=== PATIENT | female | born 1995 | race Caucasian/White ===

== ENCOUNTER → 2017-12-27 | Outpatient (CLI) | payer BC, OTHER | LOC: M SMT 14:03 | DX: Z34.81 Encounter for supervision of other normal pregnancy, first trimester (principal); Z36.89 Encounter for other specified antenatal screening | CPT/HCPCS: 36415 ==

== ENCOUNTER → 2018-01-25 | Outpatient (REF) | payer OTHER | LOC: M LAB REF 13:17 | DX: Z34.82 Encounter for supervision of other normal pregnancy, second trimester (principal) ==

== ENCOUNTER → 2018-02-14 | Outpatient (CLI) | payer BC, OTHER | LOC: M RAD 10:20 | DX: Z34.82 Encounter for supervision of other normal pregnancy, second trimester (principal); Z36.89 Encounter for other specified antenatal screening; Z3A.19 19 weeks gestation of pregnancy | CPT/HCPCS: 76811 ==

== ENCOUNTER → 2018-02-21 | Outpatient (CLI) | payer BC, OTHER ==
[2018-02-21 14:19] LABS: FREE T4 0.81 NG/DL (0.76-1.46)
== END ==
LOC: M SMT 11:33
DX: Z36.89 Encounter for other specified antenatal screening (principal); Z3A.00 Weeks of gestation of pregnancy not specified
CPT/HCPCS: 84443

== ENCOUNTER → 2018-02-28 | Outpatient (CLI) | payer BC, OTHER | LOC: M RAD 13:03 | DX: Z36.9 Encounter for antenatal screening, unspecified (principal); Z3A.20 20 weeks gestation of pregnancy | CPT/HCPCS: 76816 ==

== ENCOUNTER 2018-03-17 16:19 | Outpatient (CLI) | payer BC, OTHER ==
[2018-03-17 16:53] LABS: AMORPHOUS SEDIMENT MODERATE (NEGATIVE); APPEARANCE, URINE HAZY (CLEAR); BACTERIA, URINE AUTO 1+ (NEGATIVE); BILIRUBIN, URINE AUTO NEGATIVE (NEGATIVE); BLOOD, URINE BLOOD NEGATIVE (NEGATIVE); COLOR, URINE YELLOW (YELLOW); GLUCOSE, URINE (UA) AUTO NEGATIVE (NEGATIVE); KETONE, URINE AUTO NEGATIVE (NEGATIVE); LEUKOCYTE ESTERASE, URINE AUTO NEGATIVE (NEGATIVE); MUCUS, URINE SMALL (NEGATIVE); NITRITE, URINE AUTO NEGATIVE (NEGATIVE); PROTEIN, URINE AUTO NEGATIVE (NEGATIVE); RBC, URINE AUTO 1 /HPF (0-3); SPECIFIC GRAVITY URINE AUTO 1.016 (1.002-1.035); SQUAMOUS EPITHELIAL CELL UR AU 1 /HPF (0-6); UROBILINOGEN, URINE AUTO 0.2 mg/dL (0.0-2.0); WBC, URINE AUTO 0 /HPF (0-3)
[2018-03-17] MEDS: FLUCONAZOLE 50MG TABLET PO (18:22)
[2018-03-17] MEDS: metroNIDAZOLE (FLAGYL) 500 MG TAB PO (18:23)
[2018-03-17] MEDS: NORCO, ANEXSIA 5/325MG TABLET (HYDROcodone/ACETAMINOPHEN) PO (18:23)
== END 2018-03-17 18:23 | disposition home or self-care (01) ==
LOC: M LDO 16:19
DX: O23.592 Infection of other part of genital tract in pregnancy, second trimester (principal); O26.832 Pregnancy related renal disease, second trimester; O26.892 Other specified pregnancy related conditions, second trimester; R10.30 Lower abdominal pain, unspecified; M54.5 Low back pain; Z3A.24 24 weeks gestation of pregnancy
CPT/HCPCS: 76775

== ENCOUNTER 2018-04-01 13:45 | Outpatient (CLI) | payer BC, OTHER ==
[2018-04-01 15:01] LABS: AMORPHOUS SEDIMENT SMALL (NEGATIVE); APPEARANCE, URINE CLOUDY (CLEAR); BACTERIA, URINE AUTO 1+ (NEGATIVE); BILIRUBIN, URINE AUTO NEGATIVE (NEGATIVE); BLOOD, URINE BLOOD 3+ (NEGATIVE); COLOR, URINE YELLOW (YELLOW); GLUCOSE, URINE (UA) AUTO NEGATIVE (NEGATIVE); KETONE, URINE AUTO NEGATIVE (NEGATIVE); LEUKOCYTE ESTERASE, URINE AUTO 1+ (NEGATIVE); MUCUS, URINE SMALL (NEGATIVE); NITRITE, URINE AUTO NEGATIVE (NEGATIVE); PROTEIN, URINE AUTO NEGATIVE (NEGATIVE); RBC, URINE AUTO TNTC /HPF (0-3); SPECIFIC GRAVITY URINE AUTO 1.018 (1.002-1.035); SQUAMOUS EPITHELIAL CELL UR AU 5 /HPF (0-6); UROBILINOGEN, URINE AUTO 0.2 mg/dL (0.0-2.0); WBC, URINE AUTO 9 /HPF (0-3)
[2018-04-01] MEDS: NORCO, ANEXSIA 5/325MG TABLET (HYDROcodone/ACETAMINOPHEN) PO ×2 (16:28→21:31)
[2018-04-01] MEDS: LACTATED RINGER'S 1000 ML IV (17:27)
[2018-04-01 18:43] LABS: ANION GAP 8 MEQ/L (8-16); BLOOD UREA NITROGEN 7 MG/DL (7-18); CALCIUM LEVEL 8.4 MG/DL (8.5-10.1); CARBON DIOXIDE LEVEL 25 MEQ/L (21-32); CHLORIDE LEVEL 109 MEQ/L (98-107); CREATININE FOR GFR 0.46 MG/DL (0.55-1.30); GLOMERULAR FILTRATION RATE > 60.0 (>60); GLUCOSE, FASTING 68 MG/DL (70-100); POTASSIUM SERUM 4.1 MEQ/L (3.5-5.1); SODIUM LEVEL 142 MEQ/L (136-145)
[2018-04-01 19:10] LABS: BASO % 0.3 % (0.0-1.0); EOS % 0.1 % (0.0-3.0); HEMATOCRIT 34.1 % (36.0-47.0); IMMATURE GRANULOCYTE % 0.2 % (0-3.0); LYMPH # 1.9 10^3/uL (1.5-6.5); LYMPH % 19.5 % (24.0-44.0); MEAN CORPUSCULAR HEMOGLOBIN 28.7 pg (27.0-33.0); MEAN CORPUSCULAR HGB CONC 32.3 g/dl (32.0-36.5); MONO # 0.6 10^3/uL (0.0-0.8); MONO % 6.7 % (0.0-5.0); NEUTROPHILS % 73.2 % (36.0-66.0); PLATELET COUNT, AUTOMATED 209 10^3/uL (150-450); RED BLOOD COUNT 3.83 10^6/uL (4.00-5.40); RED CELL DISTRIBUTION WIDTH 12.5 % (11.5-14.5); WHITE BLOOD COUNT 9.5 10^3/uL (4.0-10.0)
[2018-04-01] MEDS ORDERED: NORCO, ANEXSIA 5/325MG TABLET (HYDROcodone/ACETAMINOPHEN) PO (21:22)
[2018-04-01] MEDS: LR 1,000 ML IV (23:34)
[2018-04-02] MEDS: NORCO, ANEXSIA 5/325MG TABLET (HYDROcodone/ACETAMINOPHEN) PO ×2 (03:53→07:38)
[2018-04-02] MEDS: LR 1,000 ML IV (07:39)
[2018-04-02] MEDS ORDERED: ONDANSETRON 4 MG ORAL DISINTEGRATING TAB (Q0162 PER 1MG) PO (08:15)
[2018-04-02] MEDS: LEVOTHYROXINE 112MCG TABLET (0.112MG) PO (09:31)
== END 2018-04-02 11:45 | disposition home or self-care (01) ==
LOC: M LDO 13:45 → M OBS 20:55
DX: N20.0 Calculus of kidney (principal); Q79.6 Ehlers-Danlos syndromes; Q61.5 Medullary cystic kidney; J45.909 Unspecified asthma, uncomplicated; G90.9 Disorder of the autonomic nervous system, unspecified; Z90.49 Acquired absence of other specified parts of digestive tract; Z98.890 Other specified postprocedural states; Z79.890 Hormone replacement therapy; Z79.899 Other long term (current) drug therapy
CPT/HCPCS: 76775

== ENCOUNTER → 2018-04-05 | Outpatient (CLI) | payer BC, OTHER ==
[2018-04-05 13:36] LABS: HEMATOCRIT 31.2 % (36.0-47.0); MEAN CORPUSCULAR HEMOGLOBIN 28.6 pg (27.0-33.0); MEAN CORPUSCULAR HGB CONC 32.1 g/dl (32.0-36.5); MEAN CORPUSCULAR VOLUME 89.1 fl (80.0-96.0); PLATELET COUNT, AUTOMATED 193 10^3/uL (150-450); RED CELL DISTRIBUTION WIDTH 12.4 % (11.5-14.5); WHITE BLOOD COUNT 6.6 10^3/uL (4.0-10.0)
[2018-04-05 13:54] LABS: GLUCOSE CHALLENGE TEST 1 HOUR 157 MG/DL (LESS THAN 140)
== END ==
LOC: M LAB 11:39
DX: Z34.82 Encounter for supervision of other normal pregnancy, second trimester (principal); Z3A.00 Weeks of gestation of pregnancy not specified
CPT/HCPCS: 82950

== ENCOUNTER → 2018-04-05 | Outpatient (CLI) | payer BC, OTHER ==
[2018-04-05 14:07] LABS: FREE T4 0.84 NG/DL (0.76-1.46)
== END ==
LOC: M LAB 11:42
DX: E03.9 Hypothyroidism, unspecified (principal)
CPT/HCPCS: 84443

== ENCOUNTER 2018-04-10 03:02 | Inpatient (IN) | payer BC, OTHER ==
[2018-04-10] MEDS: LR 1,000 ML IV ×3 (04:18→19:53)
[2018-04-10] MEDS: LACTATED RINGER'S 1000 ML IV ×2 (04:30→11:05)
[2018-04-10 04:35] LABS: APPEARANCE, URINE HAZY (CLEAR); BACTERIA, URINE AUTO NEGATIVE (NEGATIVE); BILIRUBIN, URINE AUTO NEGATIVE (NEGATIVE); BLOOD, URINE BLOOD 1+ (NEGATIVE); COLOR, URINE YELLOW (YELLOW); GLUCOSE, URINE (UA) AUTO NEGATIVE (NEGATIVE); KETONE, URINE AUTO 1+ mg/dL (NEGATIVE); LEUKOCYTE ESTERASE, URINE AUTO NEGATIVE (NEGATIVE); MUCUS, URINE SMALL (NEGATIVE); NITRITE, URINE AUTO NEGATIVE (NEGATIVE); PROTEIN, URINE AUTO NEGATIVE (NEGATIVE); RBC, URINE AUTO 30 /HPF (0-3); SPECIFIC GRAVITY URINE AUTO 1.027 (1.002-1.035); SQUAMOUS EPITHELIAL CELL UR AU 6 /HPF (0-6); UROBILINOGEN, URINE AUTO 0.2 mg/dL (0.0-2.0); WBC, URINE AUTO 3 /HPF (0-3)
[2018-04-10] MEDS: ONDANSETRON 4 MG ORAL DISINTEGRATING TAB (Q0162 PER 1MG) SL (04:37)
[2018-04-10] MEDS: MORPHINE 4 MG/ML 1ML VIAL/SYRINGE (J2270) IV ×5 (04:38→21:52)
[2018-04-10 04:39] LABS: BASO % 0.2 % (0.0-1.0); EOS % 0.1 % (0.0-3.0); HEMATOCRIT 31.6 % (36.0-47.0); HEMOGLOBIN 10.5 g/dl (12.0-15.5); IMMATURE GRANULOCYTE % 0.6 % (0-3.0); LYMPH # 1.2 10^3/uL (1.5-6.5); LYMPH % 9.3 % (24.0-44.0); MEAN CORPUSCULAR HEMOGLOBIN 28.8 pg (27.0-33.0); MEAN CORPUSCULAR HGB CONC 33.2 g/dl (32.0-36.5); MEAN CORPUSCULAR VOLUME 86.6 fl (80.0-96.0); MONO # 0.6 10^3/uL (0.0-0.8); MONO % 4.9 % (0.0-5.0); NEUTROPHILS # 10.6 10^3/uL (1.8-7.7); NEUTROPHILS % 84.9 % (36.0-66.0); PLATELET COUNT, AUTOMATED 180 10^3/uL (150-450); RED BLOOD COUNT 3.65 10^6/uL (4.00-5.40); RED CELL DISTRIBUTION WIDTH 12.1 % (11.5-14.5); WHITE BLOOD COUNT 12.4 10^3/uL (4.0-10.0)
[2018-04-10] MEDS: PROMETHAZINE INJ 25 MG/ML VIAL (J2550) IV (09:32)
[2018-04-10] MEDS: MORPHINE 10 MG/ML 1ML VIAL (J2270) IV (09:32)
[2018-04-10] MEDS: TAMSULOSIN 0.4 MG CAP PO (11:07)
[2018-04-11] MEDS: MORPHINE 4 MG/ML 1ML VIAL/SYRINGE (J2270) IV ×5 (01:54→22:15)
[2018-04-11] MEDS: LR 1,000 ML IV ×3 (03:48→19:45)
[2018-04-11] MEDS: PERCOCET 5MG/325MG TAB PO ×4 (05:52→21:41)
[2018-04-11] MEDS: ONDANSETRON 4 MG ORAL DISINTEGRATING TAB (Q0162 PER 1MG) SL (07:45)
[2018-04-11] MEDS: TAMSULOSIN 0.4 MG CAP PO (08:28)
[2018-04-11] MEDS: DOCUSATE SODIUM 100 MG CAP PO ×2 (08:28→21:00)
[2018-04-11] MEDS: LEVOTHYROXINE 112MCG TABLET (0.112MG) PO (14:52)
[2018-04-11] MEDS: ESCITALOPRAM OXALATE 10 MG TAB (LEXAPRO) PO (14:52)
[2018-04-12] MEDS: PERCOCET 5MG/325MG TAB PO ×5 (01:59→20:17)
[2018-04-12] MEDS: LR 1,000 ML IV ×3 (03:28→20:17)
[2018-04-12] MEDS: MORPHINE 4 MG/ML 1ML VIAL/SYRINGE (J2270) IV ×4 (03:28→18:25)
[2018-04-12] MEDS: LEVOTHYROXINE 112MCG TABLET (0.112MG) PO (06:47)
[2018-04-12] MEDS: TAMSULOSIN 0.4 MG CAP PO (08:35)
[2018-04-12] MEDS: DOCUSATE SODIUM 100 MG CAP PO ×2 (08:35→20:16)
[2018-04-12] MEDS: ESCITALOPRAM OXALATE 10 MG TAB (LEXAPRO) PO (08:35)
[2018-04-12] MEDS: MOM 30ML SUSPENSION UDC PO (20:16)
[2018-04-13] MEDS: MORPHINE 4 MG/ML 1ML VIAL/SYRINGE (J2270) IV ×3 (00:35→16:10)
[2018-04-13] MEDS: LR 1,000 ML IV ×3 (03:16→19:20)
[2018-04-13] MEDS: PERCOCET 5MG/325MG TAB PO ×4 (03:17→22:03)
[2018-04-13] MEDS: LEVOTHYROXINE 112MCG TABLET (0.112MG) PO (05:42)
[2018-04-13] MEDS: DOCUSATE SODIUM 100 MG CAP PO ×2 (08:51→22:02)
[2018-04-13] MEDS: TAMSULOSIN 0.4 MG CAP PO (08:51)
[2018-04-13] MEDS: ESCITALOPRAM OXALATE 10 MG TAB (LEXAPRO) PO (08:52)
[2018-04-13] MEDS: ONDANSETRON 4 MG ORAL DISINTEGRATING TAB (Q0162 PER 1MG) SL (09:58)
[2018-04-13] MEDS: PROMETHAZINE INJ 25 MG/ML VIAL (J2550) IV (13:06)
[2018-04-14] MEDS: MORPHINE 4 MG/ML 1ML VIAL/SYRINGE (J2270) IV ×2 (00:56→05:20)
[2018-04-14] MEDS: LR 1,000 ML IV ×3 (03:14→20:02)
[2018-04-14] MEDS: LEVOTHYROXINE 112MCG TABLET (0.112MG) PO (06:00)
[2018-04-14] MEDS: ONDANSETRON 4 MG ORAL DISINTEGRATING TAB (Q0162 PER 1MG) SL (09:51)
[2018-04-14] MEDS: PERCOCET 5MG/325MG TAB PO ×2 (09:53→18:17)
[2018-04-14] MEDS: TAMSULOSIN 0.4 MG CAP PO (09:53)
[2018-04-14] MEDS: ESCITALOPRAM OXALATE 10 MG TAB (LEXAPRO) PO (09:53)
[2018-04-14] MEDS: DOCUSATE SODIUM 100 MG CAP PO ×2 (09:54→20:01)
[2018-04-14] MEDS: PROMETHAZINE INJ 25 MG/ML VIAL (J2550) IV (10:55)
[2018-04-15] MEDS: PERCOCET 5MG/325MG TAB PO ×7 (00:12→23:53)
[2018-04-15] MEDS: LR 1,000 ML IV ×3 (04:02→18:55)
[2018-04-15] MEDS: LEVOTHYROXINE 112MCG TABLET (0.112MG) PO (06:30)
[2018-04-15] MEDS: TAMSULOSIN 0.4 MG CAP PO (09:31)
[2018-04-15] MEDS: ESCITALOPRAM OXALATE 10 MG TAB (LEXAPRO) PO (09:31)
[2018-04-15] MEDS: DOCUSATE SODIUM 100 MG CAP PO ×2 (09:31→21:01)
[2018-04-15] MEDS: ONDANSETRON 4 MG ORAL DISINTEGRATING TAB (Q0162 PER 1MG) SL (11:38)
[2018-04-15] MEDS: PROMETHAZINE INJ 25 MG/ML VIAL (J2550) IV (13:36)
[2018-04-16] MEDS: LR 1,000 ML IV ×3 (03:15→19:29)
[2018-04-16] MEDS: LEVOTHYROXINE 112MCG TABLET (0.112MG) PO (06:20)
[2018-04-16] MEDS: PERCOCET 5MG/325MG TAB PO ×3 (08:06→19:30)
[2018-04-16] MEDS ORDERED: MORPHINE 4 MG/ML 1ML VIAL/SYRINGE (J2270) IV (08:45)
[2018-04-16] MEDS ORDERED: ONDANSETRON 4 MG ORAL DISINTEGRATING TAB (Q0162 PER 1MG) SL (08:45)
[2018-04-16] MEDS: DOCUSATE SODIUM 100 MG CAP PO ×2 (12:12→21:59)
[2018-04-16] MEDS: ESCITALOPRAM OXALATE 10 MG TAB (LEXAPRO) PO (12:12)
[2018-04-16] MEDS: TAMSULOSIN 0.4 MG CAP PO (12:12)
[2018-04-17] MEDS: PROMETHAZINE INJ 25 MG/ML VIAL (J2550) IV (00:35)
[2018-04-17] MEDS: PERCOCET 5MG/325MG TAB PO (00:36)
[2018-04-17] MEDS: LR 1,000 ML IV (04:45)
[2018-04-17] MEDS: LEVOTHYROXINE 112MCG TABLET (0.112MG) PO (05:54)
[2018-04-17] MEDS: TAMSULOSIN 0.4 MG CAP PO (08:27)
[2018-04-17] MEDS: ESCITALOPRAM OXALATE 10 MG TAB (LEXAPRO) PO (08:27)
[2018-04-17] MEDS: DOCUSATE SODIUM 100 MG CAP PO (08:27)
== END 2018-04-17 13:47 | disposition home or self-care (01) | DRG 566 ==
LOC: M LDO 03:02 → M PCU 04-14 03:54 → M LDO 04-14 03:55 → M OBS 11:24 → M PCU 04-14 03:55 → M OBS 04-14 03:54 → M LDO 04-15 12:48 → M PCU 04-15 12:48 → M OBS 04-12 16:40 → M LDO 04-15 13:15 → M PCU 04-14 03:54
DX: O99.89 Other specified diseases and conditions complicating pregnancy, childbirth and the puerperium (principal); N20.1 Calculus of ureter; Z3A.27 27 weeks gestation of pregnancy; O99.282 Endocrine, nutritional and metabolic diseases complicating pregnancy, second trimester; E03.9 Hypothyroidism, unspecified; O99.342 Other mental disorders complicating pregnancy, second trimester; F32.9 Major depressive disorder, single episode, unspecified; F41.9 Anxiety disorder, unspecified; O99.512 Diseases of the respiratory system complicating pregnancy, second trimester; J45.909 Unspecified asthma, uncomplicated

== ENCOUNTER → 2018-05-17 | Outpatient (REF) | payer OTHER ==
[~2018-05-17] MED LIST: COLA100C5 PO; FLOM0.4C39 PO; GRAN1TA PO; LEVO100T5 PO; LEXA1TAB2 PO; METR-201 PO; NEXI1CAP4 PO; NORC1TAB4 PO; PERCOCET PO; SYNT112T2 PO; VICO5TAB16 PO; ZOFR4TAB16 PO
== END ==
LOC: M LAB REF 13:08
PROVIDERS: ATTEND Advanced Practice Midwife
DX: Z34.83 Encounter for supervision of other normal pregnancy, third trimester (principal); Z3A.00 Weeks of gestation of pregnancy not specified

== ENCOUNTER 2018-05-30 12:46 | Outpatient (CLI) | payer BC, OTHER ==
[~2018-05-30] VITALS: Ht 152.4 cm; Wt 70.3 kg
[2018-05-30 13:00] VITALS: BP 110/63
[2018-05-30] MEDS ORDERED: GRAN1TA PO (13:19)
== END 2018-05-30 13:53 | disposition home or self-care (01) ==
LOC: M LDO 12:46
PROVIDERS: ATTEND Obstetrics & Gynecology
DX: O26.853 Spotting complicating pregnancy, third trimester (principal); Z3A.34 34 weeks gestation of pregnancy
CPT/HCPCS: 59025; G0378; G0463

== ENCOUNTER 2018-05-31 12:26 | Outpatient (CLI) | payer BC, OTHER ==
[~2018-05-31 12:26] MED LIST changes: -IBUP-1114 PO; -MAPA500T2 PO; -OXYC1TAB23 PO; -PEPC1TAB2 PO; -PRENTAB9 PO; -PROM50TA4 PO
[2018-05-31] MEDS ORDERED: BETAMETHASONE SOLUSPAN 6MG/ML INJ 5ML (J0702) IM ONE (13:45)
[2018-06-01] MEDS ORDERED: PEPC1TAB2 PO (14:36)
--- NOTE | 2018-06-01 15:32 | NUR ---
L&D Triage Note Note from 05/31/18 encounter 22yo at 34+5 weeks EGA. Elevated PTL/PTD risk since she was found to have slightly more advanced cervical dilation yesterday. Pt had apparently changed from 1cm to 3cm dilation. Pt had also complained of bloody mucoid discharge, but denies any large loss of fluid. Reports +FM. Pt states she recently noticed spotting. No steady leakage or large LOF. Pt states she is having uncomfortable contractions. VSS,normotensive, afebrile Abd: soft,nt,nd SVE: unchanged: 3/50%/-3, no blood or fluid EFM: Cat I/reactive [place]: irreg ctx A/P: 22yo at 34+5 weeks. No e/o PPROM or active PTL/further cervical dilation, but slightly advanced dilation for EGA. -Start rescue course of ACS ; pt had first course of ACS several weeks ago prior to 32 weeks. -Repeat SVE after >2 hours of observation; D/c if unchanged and repeat dose on 06/01 at [facility] to perform repeat SVE Andra Harrison DO
== END 2018-05-31 17:30 | disposition home or self-care (01) ==
LOC: M LDO 12:26
PROVIDERS: ATTEND Advanced Practice Midwife
DX: O47.03 False labor before 37 completed weeks of gestation, third trimester (principal); Z3A.35 35 weeks gestation of pregnancy
CPT/HCPCS: 59025; 96372; G0378; G0463; J0702

== ENCOUNTER → 2018-05-31 | Outpatient (REF) | payer OTHER ==
[~2018-05-31] MED LIST changes: +IBUP-1114 PO; +MAPA500T2 PO; +OXYC1TAB23 PO; +PEPC1TAB2 PO; +PRENTAB9 PO; +PROM50TA4 PO
--- NOTE | 2018-05-31 17:28 | IPNPDOC ---
Text Note Date of Service The patient was seen on 05/31/18. NOTE Reports irregular backache Cat I tracing SVE 2-/2, soft Pt discharged. Plans to stay in town overnight due to snow. Will return to hospital for Beta #2. After hours access, PTL, daily FKC, wanedens reivewed. Rhoda Harding CNM May 31, 2018 17:28
== END ==
LOC: M LAB REF 13:31
PROVIDERS: ATTEND Advanced Practice Midwife
DX: Z34.83 Encounter for supervision of other normal pregnancy, third trimester (principal); Z3A.00 Weeks of gestation of pregnancy not specified

== ENCOUNTER 2018-06-01 14:00 | Outpatient (CLI) | payer BC, OTHER ==
[~2018-06-01] VITALS: Ht 152.4 cm; Wt 71.8 kg
[2018-06-01 14:31] VITALS: BP 114/70
[2018-06-01] MEDS ORDERED: PEPC1TAB2 PO (14:36)
--- NOTE | 2018-06-01 15:03 | NUR ---
L&D Triage Note 22yo at 34+6 weeks EGA. Presents for second BMTZ dose; rescue course of ACS. Elevated PTL/PTD risk since she was found to have slightly more advanced cervical dilation yesterday. Pt had apparently changed from 1cm to 3cm dilation. Pt had also complained of bloody mucoid discharge, but denies any large loss of fluid. Reports +FM. Still complains intermittent/rare spotting overnight. No LOF. Intermittently having bouts of frequent contractions, but currently resting comfortably. VSS,normotensive, afebrile Abd: soft,nt,nd SVE: unchanged: 3/50%/-3; no blood or fluid noted. EFM: Cat I/reactive [place]: irreg / rare ctx A/P: 22yo at 34+6 weeks. No e/o PPROM or active PTL. Cervix, although slightly dilated at 3cm, remains unchanged since yesterday. -Repeat BMTZ dose -Routine PTL/PPROM, FKC, abruption, fever/infectious precautions reviewed -Follow up in office as scheduled. Andra Harrison DO
[2018-06-01] MEDS ORDERED: BETAMETHASONE SOLUSPAN 6MG/ML INJ 5ML (J0702) IM ONE (15:30)
== END 2018-06-01 15:30 | disposition home or self-care (01) ==
LOC: M LDO 14:00
PROVIDERS: ATTEND Obstetrics & Gynecology
DX: O47.03 False labor before 37 completed weeks of gestation, third trimester (principal); Z3A.34 34 weeks gestation of pregnancy
CPT/HCPCS: 59025; 96372; G0378; G0463; J0702

== ENCOUNTER 2018-06-04 10:22 | Inpatient (IN) | payer BC, OTHER ==
[~2018-06-04] VITALS: Ht 152.4 cm; Wt 71.9 kg
[2018-06-04] VITALS (9 sets, daily range): BP systolic 103–118; BP diastolic 52–78
[~2018-06-04 10:22] MED LIST changes: +PEPC1TAB2 PO
[2018-06-04] MEDS ORDERED: PROM50TA4 PO (10:42)
--- NOTE | 2018-06-04 15:04 | HPEPDOC ---
Obstetrical History & Physical General Date of Admission Jun 04, 2018 at 10:57 History of Present Illness CC: Labor HPI: Darlene Recinos is a 22 y.o. @ 35-2/7 weeks gestation by LMP on 09/30/17 with CHIQUI 07/07/18. Recently seen on 06/01/18 for bleeding and more regular contractions. SVE at the time showed: 2-3/75/-2, soft, anterior, no show. She was given a betamethasone injection for labor. She presents today complaining of rupture of membranes this AM and to receive her second dose of betamethasone. Uterine Contractions q (patient unsure) that last about 30 seconds since 0900. SROM? yes Movement? yes Bleeding/Discharge? small amount of spotting Care/Lab: Blood type: A+ Rh-, Ab- BPs: 106/52 Total weight gained:23 lbs GBS - Rubella: immune HIV - Pap: none recently documented GC/CT: -/- Hep BsAg - [place]: WNL VDRL/RPR: non-reactive Diabetes Screen:157 3 hour GTT: 87/140/116/99 OB U/S: 02/14/18 Anatomy US: SIUP. Placenta is anterior and grade 0 without previa or abruption. AFV is wnl. Cervix is 3.5 cm and closed. FHR 139 BPM. EFW 268g. 26th%. Limited eval on the heart/ventricular outflow tracts and spine. 02/28/18 F/U US: SIUP. FHR 128 BPM. EFW 389g. 26th%. Anatomical assessment is normal and complete. POB Hx: Year Gender Gest Delivery Weight Complications? 1. 06/2017 at 9-0/7wks miscarriage PMHx: Meds: prenatals? yes Hypothyroid Thelma-Danlos Syndrome, type 3 Medullary sponge kidney Postural orthostatic tachycardia Syndrome (POTS) Asthma Anxiety Depression Varicose veins PSHx: Appendectomy Surgical removal of kidney stones Allergies:Keflex, macrobid, nitrofurantoin, metoclopramide Social Hx: Has been with same partner for last 2 years, denies tobacco, etoh, or drug use. She lives in [place] Exam: Vitals: T 97.7 HR83 BP 106/52 Abdomen:gravid, non-tender SVE:Performed. Monitor: FHR 145 with moderate variability, no decels, Category I tracing. TOCO:No contractions currently. Past Medical History Allergies Coded Allergies: Bee Venom (Verified Allergy, Severe, 06/01/18) PT REPORTS ANAPHYLAXIS Cephalexin (Verified Allergy, Severe, anaphylaxis, 03/17/18) Metoclopramide (Verified Allergy, Severe, SEIZURE , 04/01/18) Nitrofurantoin (Verified Allergy, Severe, facial swelling, 03/17/18) Latex (Verified Allergy, Unknown, ANAPHYLAXIS, 06/04/18) PT REPORTS ANAPHYLAXIS Medications Scheduled Escitalopram Oxalate (Lexapro) 20 Mg Tab, 20 MG PO DAILY Esomeprazole (Nexium 24Hr) 20 Mg Cap, 1 CAP PO DAILY for acid reflux Famotidine (Pepcid) 40 Mg Tab, 1 TAB PO BID Granisetron HCl (Granisetron HCl) 1 Mg Tab, 1 TAB PO DAILY Levothyroxine Sodium (Synthroid) 112 Mcg Tab, 1 TAB PO DAILY Multivitamins/ ( 27-0.8 mg) 1 Tab Tab, 1 TAB PO DAILY Scheduled PRN Acetaminophen (Mapap) 500 Mg Tab, 1,000 MG PO Q6HP PRN for MILD PAIN (PS 1-4) Ibuprofen (Ibuprofen) 400 Mg Tab, 800 MG PO Q8HP PRN for MODERATE PAIN (PS 5-7) Physical Examination Physical Examination GENERAL: Alert and oriented times three. ABDOMEN: Gravid and non-tender to touch. FETUS: Is vertex (VTX) by sterile vaginal examination (SVE) HEART RATE: Regular rate and rhythm. LUNGS: Clear to auscultation (CTA). EXTREMITIES: No edema. No clonus. Assessment/Plan Assessment Darlene Recinos is a 22-year-old at 35-1/7 weeks with SROM and labor. Presents to Labor and Delivery (L&D). Plan Plan: -Admit patient to L&D for Labor. -Patient to receive 2nd dose of betamethasone. -Cord venous gas, type and screen, CBC, syphilis labs ordered. -Regular diet -Group B Streptococcus (GBS) negative. -Labs and intravenous (IV) per unit protocol. -FHR monitor and intrauterine monitor ordered. -Anticipate normal spontaneous delivery (). -C-S as appropriate. GME ATTESTATION GME ATTESTATION My faculty preceptor for this patient encounter was physically present during the encounter and was fully available. All aspects of the patient interview, examination, medical decision making process, and medical care plan development were reviewed and approved by the faculty preceptor. The faculty preceptor is aware and concurs with the plan as stated in the body of this note and will attest to such by his/her cosignature. SILVIA CABEZAS DO Jun 04, 2018 15:04
[2018-06-04 16:47] LABS: HEMATOCRIT 28.1 % (36.0-47.0); HEMOGLOBIN 8.9 g/dl (12.0-15.5); MEAN CORPUSCULAR HEMOGLOBIN 26.3 pg (27.0-33.0); MEAN CORPUSCULAR HGB CONC 31.7 g/dl (32.0-36.5); MEAN CORPUSCULAR VOLUME 82.9 fl (80.0-96.0); PLATELET COUNT, AUTOMATED 206 10^3/uL (150-450); RED BLOOD COUNT 3.39 10^6/uL (4.00-5.40); WHITE BLOOD COUNT 14.8 10^3/uL (4.0-10.0)
[2018-06-04] MEDS ORDERED: PROMETHAZINE INJ 25 MG/ML VIAL (J2550) IV PRN (17:30)
[2018-06-04] MEDS ORDERED: BUTORPHANOL 2 MG/ML INJ (J0595) IV ONE (17:30)
[2018-06-04] MEDS ORDERED: OXYTOCIN 30 UNITS IN 0.9% NaCl 500ML IV BAG (J2590) As Ordered ONE (18:58)
[2018-06-04] MEDS ORDERED: OXYTOCIN DRIP 30 UNITS in APPROPRIATE DILUENT 1 EA IV SCH (20:01)
[2018-06-04] MEDS ORDERED: MOM 30ML SUSPENSION UDC PO PRN (20:15)
[2018-06-04] MEDS ORDERED: DOCUSATE SODIUM 100 MG CAP PO PRN (20:15)
[2018-06-04] MEDS ORDERED: MEASLES,MUMPS,RUBELLA VACCINE INJ (MMR-II) (90707) SC SCH (20:15)
[2018-06-04] MEDS ORDERED: DIBUCAINE 1% OINTMENT 30GM TOP PRN (20:15)
[2018-06-04] MEDS ORDERED: METHYLERGONOVINE MALEATE 0.2 MG TAB PO PRN (20:15)
[2018-06-04] MEDS ORDERED: RHOGAM 300 MCG (1500 IU) INJ (J2790) IM SCH (20:15)
[2018-06-04] MEDS ORDERED: ANUSOL HC CREAM 30GM TOP PRN (20:15)
[2018-06-04] MEDS ORDERED: ONDANSETRON 4MG/2ML VIAL (J2405) IV PRN (20:15)
[2018-06-04] MEDS ORDERED: LIDOCAINE 1% MDV 20ML VIAL INFIL ONE (21:00)
--- NOTE | 2018-06-04 21:17 | DN ---
DATE OF PROCEDURE: 06/04/2018 TIME OF : 1919 hours GENDER: Female SCORES: 8 and 9. WEIGHT: 5 pounds 9 ounces, 2530 grams. LACERATION: Left labial. ESTIMATED BLOOD LOSS: 300 mL. COUNTS: Five laparotomy sponges accounted for prior to and after delivery. Three sharps removed from delivery field. ANESTHESIA: None. DELIVERY NOTE: On 06/04/2018 at 1919 hours, Ms. Recinos, a 22-year-old, 2, now para 1 had a delivery at 35 weeks of a liveborn female , scores of 8 and 9. Weight was 5 pounds 9 ounces or 2530 grams. Head was delivered occiput anterior (OA) over intact perineum, followed by delivery of shoulders and corpus. Infant was handed to mom with a good cry. Cord was clamped times two, was cut by support person under my direction. Cord blood was obtained. Placenta was then drained and delivered grossly intact. A premixed bag of 500 mL of normal saline was then bolused along with 30 units of Pitocin until the uterus was firm. On inspection, there was a left labial laceration, which was repaired with #3-0 Vicryl Rapide. On re-inspection, cervix, vagina, perineum was grossly intact and hemostatic. Mom and baby recovered in stable condition.
[2018-06-05] MEDS: ACETAMINOPHEN 500 MG TAB PO PRN ×2 (05:57→12:18)
[2018-06-05 06:03] VITALS: BP 109/60
[2018-06-05] MEDS: IBUPROFEN 800 MG TAB PO PRN ×2 (08:49→18:19)
[2018-06-05] MEDS: PRENATAL VITAMINS CHEWABLE TABLET PO SCH (08:49)
[2018-06-05 18:00] VITALS: BP 119/78
[2018-06-06] MEDS: IBUPROFEN 800 MG TAB PO PRN ×3 (04:13→21:35)
[2018-06-06 06:35] VITALS: BP 115/58
[2018-06-06] MEDS: PRENATAL VITAMINS CHEWABLE TABLET PO SCH (08:11)
[2018-06-06] MEDS: ACETAMINOPHEN 500 MG TAB PO PRN (08:12)
[2018-06-06] MEDS ORDERED: IBUP-1114 PO (08:27)
[2018-06-06] MEDS ORDERED: MAPA500T2 PO (08:27)
[2018-06-06] MEDS ORDERED: PRENTAB9 PO (08:27)
[2018-06-06 09:49] LABS: HEMATOCRIT 28.4 % (36.0-47.0); HEMOGLOBIN 9.1 g/dl (12.0-15.5); MEAN CORPUSCULAR HEMOGLOBIN 26.8 pg (27.0-33.0); MEAN CORPUSCULAR VOLUME 83.5 fl (80.0-96.0); PLATELET COUNT, AUTOMATED 197 10^3/uL (150-450); WHITE BLOOD COUNT 17.6 10^3/uL (4.0-10.0)
[2018-06-06 18:09] VITALS: BP 118/72
[2018-06-06] MEDS: PERCOCET 5MG/325MG TAB PO PRN (21:37)
[2018-06-07] MEDS ORDERED: OXYC1TAB23 PO ×2 (06:29→09:43)
[2018-06-07] MEDS: IBUPROFEN 800 MG TAB PO PRN (07:44)
[2018-06-07] MEDS: PRENATAL VITAMINS CHEWABLE TABLET PO SCH (07:44)
[2018-06-07] MEDS: PERCOCET 5MG/325MG TAB PO PRN (10:18)
== END 2018-06-07 13:26 | disposition home or self-care (01) | DRG 560 ==
LOC: M LDO 10:22 → M LDI 10:57 → M OBS 21:11
PROVIDERS: ADMIT Obstetrics & Gynecology; ATTEND Obstetrics & Gynecology
PROC: 10E0XZZ Delivery of Products of Conception, External Approach (ICD-10-PCS; principal; 2018-06-04)
PROC: 0HQ9XZZ Repair Perineum Skin, External Approach (ICD-10-PCS; 2018-06-04)
DX: O42.013 Preterm premature rupture of membranes, onset of labor within 24 hours of rupture, third trimester (principal); O70.0 First degree perineal laceration during delivery; Z3A.35 35 weeks gestation of pregnancy; Z37.0 Single live birth; O99.284 Endocrine, nutritional and metabolic diseases complicating childbirth; E03.9 Hypothyroidism, unspecified; O99.52 Diseases of the respiratory system complicating childbirth; J45.909 Unspecified asthma, uncomplicated

== ENCOUNTER 2018-06-09 12:03 | Inpatient (IN) | payer BC, OTHER ==
[~2018-06-09] VITALS: Ht 152.4 cm; Wt 68.0 kg
[~2018-06-09 12:03] MED LIST changes: +IBUP-1114 PO; +MAPA500T2 PO; +OXYC1TAB23 PO; +PRENTAB9 PO; +PROM50TA4 PO
[2018-06-09] MEDS ORDERED: DILUENT IV ONE (12:30)
[2018-06-09] MEDS ORDERED: NS IV ONE (12:30)
[2018-06-09 12:40] LABS: VENOUS BASE EXCESS -2.9 (-2.0-2.0); VENOUS HCO3 20.2 MEQ/L (23.0-27.0); VENOUS O2 SATURATION 95.4 % (60.0-80.0); VENOUS PARTIAL PRESSURE CO2 29.3 mmHg (38.0-50.0); VENOUS PARTIAL PRESSURE O2 76.4 mmHg (30.0-50.0); VENOUS PH 7.456 UNITS (7.330-7.430); VENOUS TOTAL CO2 21.1 MEQ/L (24.0-28.0)
[2018-06-09 12:53] LABS: BASO % 0.2 % (0.0-1.0); EOS % 0.3 % (0.0-3.0); HEMATOCRIT 31.1 % (36.0-47.0); HEMOGLOBIN 9.7 g/dl (12.0-15.5); LYMPH # 0.5 10^3/uL (1.5-6.5); LYMPH % 5.8 % (24.0-44.0); MEAN CORPUSCULAR HEMOGLOBIN 26.1 pg (27.0-33.0); MEAN CORPUSCULAR HGB CONC 31.2 g/dl (32.0-36.5); MEAN CORPUSCULAR VOLUME 83.6 fl (80.0-96.0); MONO # 0.2 10^3/uL (0.0-0.8); MONO % 1.8 % (0.0-5.0); NEUTROPHILS # 8.4 10^3/uL (1.8-7.7); NEUTROPHILS % 90.8 % (36.0-66.0); PLATELET COUNT, AUTOMATED 175 10^3/uL (150-450); RED BLOOD COUNT 3.72 10^6/uL (4.00-5.40); WHITE BLOOD COUNT 9.3 10^3/uL (4.0-10.0)
[2018-06-09 12:54] LABS: ALBUMIN 2.5 GM/DL (3.2-5.2); ALT/SGPT 20 U/L (12-78); BILIRUBIN,DIRECT 0.1 MG/DL (0.0-0.2); BILIRUBIN,TOTAL 0.3 MG/DL (0.2-1.0); BLOOD UREA NITROGEN 10 MG/DL (7-18); CALCIUM LEVEL 7.9 MG/DL (8.5-10.1); CARBON DIOXIDE LEVEL 22 MEQ/L (21-32); CHLORIDE LEVEL 104 MEQ/L (98-107); CREATININE FOR GFR 0.59 MG/DL (0.55-1.30); GLOMERULAR FILTRATION RATE > 60.0 (>60); GLUCOSE, FASTING 85 MG/DL (70-100); POTASSIUM SERUM 3.7 MEQ/L (3.5-5.1); SODIUM LEVEL 136 MEQ/L (136-145); TOTAL PROTEIN 5.9 GM/DL (6.4-8.2)
[2018-06-09 13:25] LABS: INFLUENZA A AMPLIFICATION NEGATIVE (NEGATIVE); INFLUENZA B AMPLIFICATION NEGATIVE (NEGATIVE)
[2018-06-09] MEDS ORDERED: ACETAMINOPHEN 325 MG TAB PO ONE (13:30)
[2018-06-09] MEDS ORDERED: IMIPENEM/CILASTATIN 500 MG in D5W MINI-BAG PLUS 100 ML IV ONE (14:15)
--- NOTE | 2018-06-09 14:38 | REP ---
Clinical: pelvic pain . Technique: Transabdominal pelvic ultrasound followed by transvaginal examination for better evaluation of the endometrium and adnexa with color Doppler evaluation of the ovaries. Findings: Bladder is unremarkable and measures 11.7 x 13.6 x 7.6 cm . Heterogeneous enlarged uterus measures 16.0 x 6.5 x 10.8 cm. Endometrial complex measures 22 mm thickness and retained products of conception cannot definitively be excluded. Bilateral ovaries are normal in appearance and vascularity without evidence for torsion. Right ovary measures 2.8 x 2.0 x 2.4 cm ; R I = 0.46 . Left ovary measures 3.0 x 2.0 x 2.5 cm ; R I = 0.54 . No pelvic fluid or adnexal mass lesion. Impression: 1. Relatively normal appearance to the uterus. Thickened endometrium cannot exclude retained products of conception. 2. Normal bilateral ovaries without torsion. Electronically Signed by Abdullahi Herr MD 06/09/2018 02:29 P
[2018-06-09 14:51] LABS: APPEARANCE, URINE CLEAR (CLEAR); BACTERIA, URINE AUTO 1+ (NEGATIVE); BILIRUBIN, URINE AUTO NEGATIVE (NEGATIVE); BLOOD, URINE BLOOD 2+ (NEGATIVE); COLOR, URINE STRAW (YELLOW); GLUCOSE, URINE (UA) AUTO NEGATIVE (NEGATIVE); KETONE, URINE AUTO NEGATIVE (NEGATIVE); LEUKOCYTE ESTERASE, URINE AUTO 1+ (NEGATIVE); NITRITE, URINE AUTO NEGATIVE (NEGATIVE); PROTEIN, URINE AUTO NEGATIVE (NEGATIVE); RBC, URINE AUTO 1 /HPF (0-3); SPECIFIC GRAVITY URINE AUTO 1.004 (1.002-1.035); SQUAMOUS EPITHELIAL CELL UR AU 0 /HPF (0-6); UROBILINOGEN, URINE AUTO 0.2 mg/dL (0.0-2.0); WBC, URINE AUTO 16 /HPF (0-3)
[2018-06-09] MEDS ORDERED: NS 1,000 ML IV ONE (15:30)
[2018-06-09] MEDS ORDERED: IBUPROFEN 800 MG TAB PO ONE (15:30)
[2018-06-09] MEDS ORDERED: OXYC1TAB23 PO (16:17)
[2018-06-09] MEDS ORDERED: ONDANSETRON 4MG/2ML VIAL (J2405) IV PRN (16:30)
[2018-06-09] MEDS ORDERED: ACETAMINOPHEN 500 MG TAB PO PRN (16:30)
[2018-06-09] MEDS ORDERED: DIBUCAINE 1% OINTMENT 30GM TOP PRN (16:30)
[2018-06-09] MEDS ORDERED: NS 500 ML IV ONE (17:00)
[2018-06-09] MEDS: LR 1,000 ML IV SCH (17:46)
--- NOTE | 2018-06-09 18:22 | REPVR ---
EXAM: US Retroperitoneal Limited, Kidneys EXAM DATE/TIME: 06/09/2018 5:27 PM CLINICAL HISTORY: 22 years old, female; Pain; Abdominal pain; Acute; Additional info: Pyleonephristis TECHNIQUE: Real-time ultrasound of the retroperitoneum with image documentation. Examination was focused on the kidneys. COMPARISON: RENAL US 04/12/2018 7:48 AM FINDINGS: Kidneys: The right kidney measures 11.1 CM in length by 5.3 CM in thickness. There is moderate hydronephrosis of the right collecting system. This could be secondary to reflux or partial obstruction on the right. Correlation with a CT scan with contrast should be considered. There is a 1 CM round stone in the upper pole the right kidney. Normal appearing urinary bladder. There are 3 calcified stones left kidney ranging in size from 5 mm to 7 mm. There is no evidence of significant hydronephrosis on the left. The left kidney measures 11.1 CM in length by 6 mm in thickness. There is evidence of a jet of urine right and left urinary bladder base. IMPRESSION: 1. Calcified stones right and left kidney which are nonobstructive. 2. There is moderate hydronephrosis of the right collecting system and dilatation of the right ureter. Considerations would include reflux versus partial obstruction. Recommend correlation with CT scan with contrast for further evaluation. Electronically signed by: Eren Grove On 06/09/2018 18:21:47 PM
[2018-06-09] MEDS ORDERED: MEROPENEM INJ 1 GM in APPROPRIATE DILUENT 1 EA IV SCH (18:30)
[2018-06-09] MEDS: DOCUSATE SODIUM 100 MG CAP PO SCH (20:48)
[2018-06-09 20:49] VITALS: BP 120/71
[2018-06-09] MEDS: IMIPENEM/CILASTATIN 500 MG in D5W MINI-BAG PLUS 100 ML IV SCH (21:38)
[2018-06-09 23:59] VITALS: BP 117/74
[2018-06-10] MEDS: LR 1,000 ML IV SCH (01:06)
[2018-06-10] MEDS: PERCOCET 5MG/325MG TAB PO PRN ×3 (02:21→13:24)
[2018-06-10] MEDS: IMIPENEM/CILASTATIN 500 MG in D5W MINI-BAG PLUS 100 ML IV SCH ×4 (02:26→20:13)
[2018-06-10 04:00] VITALS: BP 119/66
[2018-06-10] MEDS: LEVOTHYROXINE 112MCG TABLET (0.112MG) PO SCH (05:54)
--- NOTE | 2018-06-10 06:53 | HPE ---
DATE OF ADMISSION: 06/09/2018 REASON FOR ADMISSION: Pyelonephritis. HISTORY OF PRESENT ILLNESS: This patient is a 22-year-old, 2, para 1 who presents six days post with fever. She reports feeling well up until this morning where she woke up with shaking chills, malaise, body aches. She took her temperature and she reports temperature was 103. She took ibuprofen and Tylenol and presented to the emergency room. She denies any abdominal tenderness, any significant flank pain, upper respiratory infection symptoms, abdominal pain, abnormal discharge or bleeding. She is currently breast feeding, also reports no breast tenderness. PAST MEDICAL HISTORY: 1. Hypothyroidism. 2. Thelma-Danlos syndrome type 3. 3. Medullary sponge kidney. 4. Asthma. 5. Anxiety and depression. PAST OBSTETRICAL HISTORY: 2, para 1. She had a delivery on June 04, 2018. She presented as a premature rupture of membranes in active labor. Her labor and course was less than 12 hours. Otherwise her delivery was uncomplicated. She sustained a labile laceration. PAST SURGICAL HISTORY: Appendectomy. MEDICATIONS: - vitamins - ibuprofen and Tylenol ALLERGIES: KEFLEX, MACROBID, REGLAN. SOCIAL HISTORY: She denies any alcohol, tobacco or drug use. PHYSICAL EXAMINATION: CURRENT VITAL SIGNS: Blood pressure 101/55, she is febrile with a temperature of 101.5, pulse 138, she is sats at 99%. GENERAL APPEARANCE: Well appearing. She does not appear to be in acute distress. LUNGS: Clear to auscultation bilaterally. CARDIOVASCULAR: Tachycardic. BREAST: normal appearing, nonedematous and nonerythemic ABDOMEN: Nontender, soft. Fundus was nontender. Positive costovertebral angle (CVA) tenderness, worse on the right than on the left. Negative rebound tenderness on her abdominal exam. PELVIC EXAM: Sutures in place in the left labia. Normal appearing lochia. No foul odor or discharge. Digital exam, no hematoma, abscess or tenderness appreciated. EXTREMITIES: Negative for calf tenderness. LABORATORY DATA: White count 5.3, hemoglobin 9.7, hematocrit 31.1, platelets 175,000. Her urine showed +2 blood, +1 leukocyte esterase, 16 white blood cells, +1 bacteria. ASSESSMENT AND PLAN: Ms. Recinos a 22-year-old, 2, para 1 who is five days post for delivery currently with fever. Differential diagnosis includes pyelonephritis, less likely endomyometritis. The plan is to: 1. Admit, repeat CBC, await urine culture. 2. Will start on Imipenem 500 mg every 6 hours, ibuprofen and Tylenol for fever and will tailor antibiotics based on the urine culture. MTDD
[2018-06-10 07:57] LABS: BASO % 0.1 % (0.0-1.0); EOS % 0.1 % (0.0-3.0); HEMATOCRIT 26.1 % (36.0-47.0); HEMOGLOBIN 8.3 g/dl (12.0-15.5); LYMPH # 0.8 10^3/uL (1.5-6.5); LYMPH % 10.8 % (24.0-44.0); MEAN CORPUSCULAR HEMOGLOBIN 26.2 pg (27.0-33.0); MEAN CORPUSCULAR HGB CONC 31.8 g/dl (32.0-36.5); MEAN CORPUSCULAR VOLUME 82.3 fl (80.0-96.0); MONO # 0.5 10^3/uL (0.0-0.8); MONO % 6.4 % (0.0-5.0); NEUTROPHILS # 5.7 10^3/uL (1.8-7.7); NEUTROPHILS % 81.5 % (36.0-66.0); PLATELET COUNT, AUTOMATED 126 10^3/uL (150-450); RED BLOOD COUNT 3.17 10^6/uL (4.00-5.40)
[2018-06-10 08:00] VITALS: BP 135/85
[2018-06-10] MEDS: PRENATAL VITAMINS CHEWABLE TABLET PO SCH (08:02)
[2018-06-10] MEDS: ESCITALOPRAM OXALATE 10 MG TAB (LEXAPRO) PO SCH (08:02)
[2018-06-10] MEDS: DOCUSATE SODIUM 100 MG CAP PO SCH ×2 (08:03→20:09)
--- NOTE | 2018-06-10 08:17 | CR ---
DATE OF CONSULTATION: 06/09/2018 This is a 22-year-old female day 5 and past medical history of hyperthyroidism, medullary sponge disease, and Thelma-Danlos Syndrome presents to the emergency room with severe aches and chills that started in the middle of the night this morning around 3. In the emergency room (ER) she was found to be tachycardic and with a fever of 101 which went up to 103, Tylenol was given and patient was started on IV fluids and sepsis protocol was initiated. Patient was given IV Primaxin. Dr. Gore was the OB-IGNITION EXPERT physician who admitted the patient the patient and our reason for our medical consultation for management of sepsis. Patient at this time denies any abdominal pain, nausea, vomiting, chest pain, shortness of breath, vertigo, headache. No diarrhea. She will be admitted for further management. PAST MEDICAL HISTORY: Again past medical history of Thelma-Danlos Syndrome, medullary sponge disease, hypothyroidism. ALLERGIES: CEPHALEXIN, METOCLOPRAMIDE, and NITROFURANTOIN. FAMILY HISTORY: Noncontributory. SOCIAL HISTORY: Patient denies tobacco, alcohol or illicit drugs. MEDICATIONS AT HOME: - escitalopram 20 mg orally daily - ibuprofen 800 mg orally every 8 hours as needed - Synthroid 112 mcg orally daily - multivitamin one tab orally daily - Oxycodone APAP 5/325 one to two tabs orally every 4-6 hours as needed REVIEW OF SYSTEMS: Negative of all ten major systems except what was mentioned in the history of present illness. PHYSICAL EXAMINATION: VITALS: Blood pressure 107/62, heart rate is 104 and regular, respiratory rate 17, temperature 98.5, oxygen saturation 96% on room air. HEAD: Atraumatic, normocephalic. NECK: Supple. No jugular venous distention (JVD). LUNGS: Clear to auscultation. S1, S2, audible. No murmurs appreciated. ABDOMEN: Soft, positive bowel sounds. EXTREMITIES: No pedal edema. SKIN: Intact. NEUROLOGIC EXAMINATION: Patient awake, alert, and oriented times three. LABS: WBC is 9.3, hemoglobin 9.7, hematocrit 31.1, platelets are 175,000. Sodium 136, potassium 3.7, chloride 104, CO2 22, BUN 10, creatinine 0.59, glucose 85, lactic acid 2.1. Urinalysis is positive for urinary tract infection (UTI). Influenza screen is negative. IMPRESSION: 1. Sepsis. 2. Urinary tract infection (UTI). PLAN: At this time we will start IV meropenem 1 gram IV every 8. We will follow pena cultures and continue IV fluids. Recommend continuing all her preadmission medications. We will continue following her along side OB-IGNITION EXPERT.
[2018-06-10 08:41] LABS: ALBUMIN 2.1 GM/DL (3.2-5.2); ALT/SGPT 29 U/L (12-78); BILIRUBIN,TOTAL 0.5 MG/DL (0.2-1.0); BLOOD UREA NITROGEN 6 MG/DL (7-18); CALCIUM LEVEL 8.1 MG/DL (8.5-10.1); CARBON DIOXIDE LEVEL 22 MEQ/L (21-32); CHLORIDE LEVEL 107 MEQ/L (98-107); CREATININE FOR GFR 0.39 MG/DL (0.55-1.30); GLOMERULAR FILTRATION RATE > 60.0 (>60); GLUCOSE, FASTING 73 MG/DL (70-100); MAGNESIUM LEVEL 1.7 MG/DL (1.8-2.4); POTASSIUM SERUM 4.1 MEQ/L (3.5-5.1); SODIUM LEVEL 138 MEQ/L (136-145); TOTAL PROTEIN 5.2 GM/DL (6.4-8.2)
[2018-06-10] MEDS ORDERED: ISOVUE-370 76% 100ML VIAL (Q9967) As Ordered ONE (10:21)
--- NOTE | 2018-06-10 10:22 | NUR ---
HD#2 S: Darlene doing well this morning. She had increasing flank pain and suprapubic pain. Has remained afebrile overnight. O: vs 135/85, 97, 99.4 Gen well appearing abd: tenderness along suprapubic cbc 7>-8.3/26.1-<126 renal u/s showing : several stone with moderate right hydronephrosis A/P: 1. 22yo with pyelonephrosis - currently stable 2. Nephrolithiasis - plan for CT - will consider Urology consult pending results Alida Gore MD
--- NOTE | 2018-06-10 11:24 | REP ---
CT abdomen and pelvis with IV but without oral contrast: History: Hydronephrosis 5 days . Pyelonephritis. Comparison sonography is from June 09, 2018. CT contrast dose: 100 mL of intravenous Isovue 370. CT findings: Preliminary digital refiner operator radiograph shows an unremarkable bowel gas pattern. The liver and the spleen are normal in size and homogeneous in texture. No gallbladder abnormalities observed. Adrenals are normal bilaterally. No pancreatic abnormality is seen. There is no evidence of ascites. uterine enlargement is observed. There are surgical clips in the right lower quadrant post appendectomy. No abnormalities seen in the gastrointestinal tract. There are bilateral intrarenal calculi. The largest of the intrarenal stones in the upper pole of the right kidney collecting system. This measures 6 mm. There is a 3 mm calculus in the mid kidney on the right and a 4 mm calculus is seen at mid kidney on the left. There is a minimal right-sided hydronephrosis. There is no evidence of ureteral calculus. No bladder calculus is observed. Delayed scan images show the ureter is slightly full on the right to the level of the vascular crossing just above the enlarged uterus. No filling defect is seen in the collecting system on either side. No evidence of asymmetrical or otherwise abnormal contrast enhancement in the kidneys to suggest pyelonephritis by CT criteria. No perinephric or intrarenal fluid collection is seen. Impression: uterine enlargement. Mild right-sided hydronephrosis. No ureteral calculus seen. There are bilateral intrarenal nonobstructive kidney stones. Post appendectomy. Otherwise negative. Electronically Signed by Alfie Calles MD 06/10/2018 01:54 P
[2018-06-10] MEDS ORDERED: SLF 3 ML SYR IV PRN (11:30)
[2018-06-10 12:00] VITALS: BP 120/58
[2018-06-10] MEDS: IBUPROFEN 800 MG TAB PO SCH ×2 (14:59→23:49)
[2018-06-10] MEDS: SLF 3 ML SYR IV SCH ×2 (15:01→21:34)
[2018-06-10 16:00] VITALS: BP 115/62
--- NOTE | 2018-06-10 16:31 | IPNPDOC ---
Text Note Date of Service The patient was seen on 06/10/18. NOTE Subjective: Patient is a 22-year-old female , with PMHx of Thelma-Danlos Syndrome (Type 3), Asthma, Hypothyroidism, Medullary sponge disease, Anxiety / Depression who presented to the ER with complaints of fever, chills and rigors. Patient had given 6 days prior to arrival . In the emergency room, patient was suspected to have a urinary tract infection and was admitted to BUSINESS ADMINISTRATOR for post- fever. Hospital service was called for consultation for suspected sepsis. Patient was seen and examined at the bedside. Patient complains of suprapubic pain, pain in both of her kidneys notes that this morning she is experiencing blood in her urine. Denies any chest pain, shortness breath, palpitations. Denies nausea and vomiting. Objective: Vitals (See below) General: Lying in bed, no acute distress, comfortable, AAOx3 HEENT: NC, AT CVS: RRR, +S1S2 Lungs: Fair air entry b/l, -w/r/r Abdomen: Soft, ND, Suprapubic tenderness, Bilateral CVA tenderness Extremities: - Edema, - Calf tenderness Assessment and plan: Sepsis - likely 2/2 pyelonephritis - Patient has a history of several urinary tract infections during her for which she is using 3 different times of antibiotics - Presented to the ER with complaints of fevers, chills and rigors, - In the emergency room, patient was found to be hypotensive; has responded to IV fluid hydration - Physical with suprapubic tenderness and bilateral CVA tenderness - No significant leukocytosis; mild elevation of lactic acid - CT abdomen / pelvis 2/: uterine enlargement. Mild right-sided hydronephrosis. No ureteral calculus seen. There are bilateral intrarenal nonobstructive kidney stones. Post appendectomy. Otherwise negative. - US renal 2/4: 1. Calcified stones right and left kidney which are nonobstructive. 2. There is moderate hydronephrosis of the right collecting system and dilatation of the right ureter. Considerations would include reflux versus partial obstruction. Recommend correlation with CT scan with contrast for further evaluation. - Pelvic US 2/4: 1. Relatively normal appearance to the uterus. Thickened endometrium cannot exclude retained products of conception. 2. Normal bilateral ovaries without torsion. - c/w Imipenem (Day #2) Thelma-Danlos Syndrome (Type 3) Asthma - No evidence of exacerbation - c/w inhaled therapy as ordered Hypothyroidism - c/w Levothyroxine Medullary sponge disease Anxiety / Depression - c/w Escitalopram DVT prophylaxis - c/w compression stockings VS,Fishbone, I+O VS, Fishbone, I+O Laboratory Tests 06/10/18 07:50 Red Blood Count 3.17 L, Mean Corpuscular Volume 82.3, Mean Corpuscular He moglobin 26.2 L, Mean Corpuscular Hemoglobin Concent 31.8 L, Red Cell Distribution Width 13.2, Neutrophils (%) (Auto) 81.5 H, Lymphocytes (%) (Auto) 10.8 L, Monocytes (%) (Auto) 6.4 H, Eosinophils (%) (Auto) 0.1, Basophils (%) (Auto) 0.1, Neutrophils # (Auto) 5.7, Lymphocytes # (Auto) 0.8 L, Monocytes # (Auto) 0.5, Eosinophils # (Auto) 0.0, Basophils # (Auto) 0.0, Calcium Level 8.1 L, Aspartate Amino Transf (AST/SGOT) 43 H, Alanine Aminotransferase (ALT/SGPT) 29, Alkaline Phosphatase 98, Total Bilirubin 0.5 #, Total Protein 5.2 L, Albumin 2.1 L Vital Signs Date Time Temp Pulse Resp B/P (MAP) Pulse Ox O2 Delivery O2 Flow Rate FiO2 06/10/18 13:54 20 06/10/18 12:00 97.0 109 120/58 (78) 97 06/09/18 12:04 Room Air I&O- Last 24 Hours up to 6 AM 06/10/18 06:00 Intake Total 5131 ml Output Total 2400 ml Balance 2731 ml LAKHWINDER HAMILTON MD Jun 10, 2018 16:31
[2018-06-10 20:00] VITALS: BP 118/55
[2018-06-10 23:59] VITALS: BP 120/71
[2018-06-11] MEDS: IMIPENEM/CILASTATIN 500 MG in D5W MINI-BAG PLUS 100 ML IV SCH ×4 (02:12→19:30)
[2018-06-11 04:00] VITALS: BP 138/65
[2018-06-11] MEDS: IBUPROFEN 800 MG TAB PO SCH ×3 (05:34→23:45)
[2018-06-11] MEDS: LEVOTHYROXINE 112MCG TABLET (0.112MG) PO SCH (05:34)
[2018-06-11] MEDS: SLF 3 ML SYR IV SCH ×3 (05:35→23:45)
[2018-06-11 05:54] LABS: BASO % 0.2 % (0.0-1.0); EOS % 0.7 % (0.0-3.0); HEMATOCRIT 27.5 % (36.0-47.0); HEMOGLOBIN 8.7 g/dl (12.0-15.5); LYMPH # 1.3 10^3/uL (1.5-6.5); LYMPH % 23.6 % (24.0-44.0); MEAN CORPUSCULAR HEMOGLOBIN 26.2 pg (27.0-33.0); MEAN CORPUSCULAR HGB CONC 31.6 g/dl (32.0-36.5); MEAN CORPUSCULAR VOLUME 82.8 fl (80.0-96.0); MONO # 0.5 10^3/uL (0.0-0.8); MONO % 10.1 % (0.0-5.0); NEUTROPHILS # 3.4 10^3/uL (1.8-7.7); NEUTROPHILS % 64.1 % (36.0-66.0); PLATELET COUNT, AUTOMATED 154 10^3/uL (150-450); RED BLOOD COUNT 3.32 10^6/uL (4.00-5.40); WHITE BLOOD COUNT 5.3 10^3/uL (4.0-10.0)
[2018-06-11 06:14] LABS: BLOOD UREA NITROGEN 10 MG/DL (7-18); CALCIUM LEVEL 8.4 MG/DL (8.5-10.1); CARBON DIOXIDE LEVEL 23 MEQ/L (21-32); CHLORIDE LEVEL 110 MEQ/L (98-107); CREATININE FOR GFR 0.44 MG/DL (0.55-1.30); GLOMERULAR FILTRATION RATE > 60.0 (>60); GLUCOSE, FASTING 95 MG/DL (70-100); POTASSIUM SERUM 3.8 MEQ/L (3.5-5.1); SODIUM LEVEL 141 MEQ/L (136-145)
[2018-06-11 08:00] VITALS: BP 124/82
[2018-06-11] MEDS: ESCITALOPRAM OXALATE 10 MG TAB (LEXAPRO) PO SCH (09:23)
[2018-06-11] MEDS: PRENATAL VITAMINS CHEWABLE TABLET PO SCH (09:23)
[2018-06-11] MEDS: DOCUSATE SODIUM 100 MG CAP PO SCH ×2 (09:23→20:06)
[2018-06-11] MEDS: PERCOCET 5MG/325MG TAB PO PRN ×2 (10:27→19:32)
[2018-06-11 12:00] VITALS: BP 118/68
--- NOTE | 2018-06-11 13:32 | IPNPDOC ---
Text Note Date of Service The patient was seen on 06/11/18. NOTE Subjective: Patient is a 22-year-old female , with PMHx of Thelma-Danlos Syndrome (Type 3), Asthma, Hypothyroidism, Medullary sponge disease, Anxiety / Depression who presented to the ER with complaints of fever, chills and rigors. Patient had given 6 days prior to arrival . In the emergency room, patient was suspected to have a urinary tract infection and was admitted to [facility] for post- fever. Hospital service was called for consultation for suspected sepsis. Patient was seen and examined at the bedside. . Currently she has no new complaints. Still reports bilateral kidney pain. Has some pain right of her pelvis. Denies any nausea, vomiting, constipation, diarrhea or discomfort with urination. Denies chest pain, shortness of breath or palpitations Objective: Vitals (See below) General: Lying in bed, no acute distress, comfortable, AAOx3 HEENT: NC, AT CVS: RRR, +S1S2 Lungs: Fair air entry b/l, auscultation is without any rhonchi, rales or wheezing Abdomen: Soft, ND, Again slightly right sided / suprapubic tenderness, Bilateral CVA tenderness still noted Extremities: No evidence of edema, - Calf tenderness Assessment and plan: Sepsis - likely 2/2 pyelonephritis - Patient has a history of several urinary tract infections during her for which she is using 3 different times of antibiotics - Presented to the ER with complaints of fevers, chills and rigors, - In the emergency room, patient was found to be hypotensive; has responded to IV fluid hydration - Physical again reveals suprapubic tenderness and bilateral CVA tenderness - No significant leukocytosis; s/p Lactic acidosis - Blood cultures 2/3: Negative at 48 hours; Urine culture 2/3: No growth - US renal 24: 1. Calcified stones right and left kidney which are nonobstructive. 2. There is moderate hydronephrosis of the right collecting system and dilatation of the right ureter. Considerations would include reflux versus partial obstruction. Recommend correlation with CT scan with contrast for further evaluation. - Pelvic US 06/10: 1. Relatively normal appearance to the uterus. Thickened endometrium cannot exclude retained products of conception. 2. Normal bilateral ovaries without torsion. - CT abdomen / pelvis 24: uterine enlargement. Mild right-sided hydronephrosis. No ureteral calculus seen. There are bilateral intrarenal nonobstructive kidney stones. Post appendectomy. Otherwise negative. - c/w Imipenem (Day #3); s/p IV fluid hydration Hydronephrosis with nephrolithiasis - No renal dysfunction noted on lab work - Imaging consistent with mild right-sided hydronephrosis - Continues to make urine without difficulty s/p Tachycardia - likely 2/2 sepsis / hypovolemia - s/p IV fluid hydration Thelma-Danlos Syndrome (Type 3) Asthma - No evidence of exacerbation - c/w inhaled therapy as ordered Hypothyroidism - c/w Levothyroxine Medullary sponge disease Anxiety / Depression - c/w Escitalopram DVT prophylaxis - c/w compression stockings VS,Fishbone, I+O VS, Fishbone, I+O Laboratory Tests 06/11/18 05:28 Red Blood Count 3.32 L, Mean Corpuscular Volume 82.8, Mean Corpuscular Hemoglob in 26.2 L, Mean Corpuscular Hemoglobin Concent 31.6 L, Red Cell Distribution Width 13.1, Neutrophils (%) (Auto) 64.1, Lymphocytes (%) (Auto) 23.6 L, Monocytes (%) (Auto) 10.1 H, Eosinophils (%) (Auto) 0.7, Basophils (%) (Auto) 0.2, Neutrophils # (Auto) 3.4, Lymphocytes # (Auto) 1.3 L, Monocytes # (Auto) 0.5, Eosinophils # (Auto) 0.0, Basophils # (Auto) 0.0, Calcium Level 8.4 L Vital Signs Date Time Temp Pulse Resp B/P (MAP) Pulse Ox O2 Delivery O2 Flow Rate FiO2 06/11/18 10:57 18 06/11/18 08:00 98.6 65 124/82 (96) 98 06/09/18 12:04 Room Air I&O- Last 24 Hours up to 6 AM 06/11/18 06:00 Intake Total 3480 ml Output Total 3600 ml Balance -120 ml LAKHWINDER HAMILTON MD Jun 11, 2018 13:32
[2018-06-11 16:00] VITALS: BP 120/55
[2018-06-11 20:00] VITALS: BP 124/83
--- NOTE | 2018-06-11 20:03 | NUR ---
HD#3 S: Darlene is feeling improved compared to yesterday. She still complains of lower pelvic pain; moderate at its worst over last 24 hours. Has remained afebrile overnight. O: VSS/normotensive, afebrile. Gen well appearing abd: tenderness along suprapubic No new labs renal u/s showing : several stone with moderate right hydronephrosis CTa/p on 06/10: no obstructing stone or significant hydronephrosis. A/P: 22yo being treated for pyelonephrosis - currently stable -Continue pain control and abx -Anticipate d/c on 06/12 if she continues to improve. -CBC in AM. Andra Harrison, DO
[2018-06-12] VITALS: BP 117/76
--- NOTE | 2018-06-12 00:52 | IPNPDOC ---
Text Note Date of Service The patient was seen on 06/12/18. NOTE I was called urgently to asses patient for bradycardia. 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 She was walking back from NICU to visit her , and was bradycar dic in the 40s with 93% on room air. She denies chest pain/pressure, but states that she feels like her heart is fluttering, though not as badly as when she has palpitations with her POTS. She denies shortness of breath, dyspnea, or cough. She states the she feels like she is breathing fine. O: VS HR 46 bpm, O2 93% Room Air, BP 117/76 General: Awake, alert, pleasant and cooperative, in no acute distress. Lungs: CTA bilaterally, no wheezes, rhonchi or rales Heart: Bradycardic, regular rhythm. Normal S1 and S2. I cannot appreciate any murmurs/gallops/rubs STAT EKG: Bradycardic at 46 bpm, normal axis, mildly lengthened QRS, question IVCD. 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 She is bradycardic. 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 She has been evaluated by Dr. Ashley previously. EKG findings were non-specific, and with her Hx of mitral valve prolapse, I strongly think she should have an Echo, as well as be evaluated by Dr. Ashley. VS,Ziyadbone, I+O VS, Ziyadbone, I+O Laboratory Tests 06/11/18 05:28 Red Blood Count 3.32 L, Mean Corpuscular Volume 82.8, Mean Corpuscular Hemoglobin 26.2 L, Mean Corpuscular Hemoglobin Concent 31.6 L, Red Cell Distribution Width 13.1, Neutrophils (%) (Auto) 64.1, Lymphocytes (%) (Auto) 23.6 L, Monocytes (%) (Auto) 10.1 H, Eosinophils (%) (Auto) 0.7, Basophils (%) (Auto) 0.2, Neutrophils # (Auto) 3.4, Lymphocytes # (Auto) 1.3 L, Monocytes # (Auto) 0.5, Eosinophils # (Auto) 0.0, Basophils # (Auto) 0.0, Calcium Level 8.4 L Vital Signs Date Time Temp Pulse Resp B/P (MAP) Pulse Ox O2 Delivery O2 Flow Rate FiO2 06/12/18 00:00 97.2 55 16 117/76 (90) 93 06/09/18 12:04 Room Air I&O- Last 24 Hours up to 6 AM 06/12/18 05:59 Intake Total 1800 ml Output Total 1740 ml Balance 60 ml GME ATTESTATION GME ATTESTATION My faculty preceptor for this patient encounter was physically present during the encounter and was fully available. All aspects of the patient interview, examination, medical decision making process, and medical care plan development were reviewed and approved by the faculty preceptor. The faculty preceptor is aware and concurs with the plan as stated in the body of this note and will attest to such by his/her cosignature. ATTENDING NOTE Attestation: I have supervised the certified medical asst and discussed patients evaluation and medical management. I agree with the outlined management plan as documented in the residents note. YOUNG BARRY DO Jun 12, 2018 00:52 KARMA MILLER MD Jun 12, 2018 06:42
[2018-06-12] MEDS: IMIPENEM/CILASTATIN 500 MG in D5W MINI-BAG PLUS 100 ML IV SCH (02:37)
[2018-06-12 04:00] VITALS: BP 129/79
[2018-06-12] MEDS: SLF 3 ML SYR IV SCH ×3 (05:56→22:00)
[2018-06-12] MEDS: LEVOTHYROXINE 112MCG TABLET (0.112MG) PO SCH (05:56)
[2018-06-12] MEDS: IBUPROFEN 800 MG TAB PO SCH ×2 (05:56→17:58)
[2018-06-12 06:11] LABS: BASO % 0.3 % (0.0-1.0); EOS # 0.1 10^3/uL (0.0-0.50); HEMATOCRIT 27.7 % (36.0-47.0); HEMOGLOBIN 8.6 g/dl (12.0-15.5); LYMPH % 32.5 % (24.0-44.0); MEAN CORPUSCULAR HEMOGLOBIN 26.1 pg (27.0-33.0); MEAN CORPUSCULAR VOLUME 84.2 fl (80.0-96.0); MONO # 0.6 10^3/uL (0.0-0.8); MONO % 9.6 % (0.0-5.0); NEUTROPHILS # 3.4 10^3/uL (1.8-7.7); NEUTROPHILS % 54.7 % (36.0-66.0); PLATELET COUNT, AUTOMATED 153 10^3/uL (150-450); RED BLOOD COUNT 3.29 10^6/uL (4.00-5.40); WHITE BLOOD COUNT 6.3 10^3/uL (4.0-10.0)
[2018-06-12 06:39] LABS: BLOOD UREA NITROGEN 11 MG/DL (7-18); CALCIUM LEVEL 8.2 MG/DL (8.5-10.1); CARBON DIOXIDE LEVEL 23 MEQ/L (21-32); CHLORIDE LEVEL 110 MEQ/L (98-107); CREATININE FOR GFR 0.46 MG/DL (0.55-1.30); GLOMERULAR FILTRATION RATE > 60.0 (>60); GLUCOSE, FASTING 73 MG/DL (70-100); MAGNESIUM LEVEL 1.8 MG/DL (1.8-2.4); POTASSIUM SERUM 3.6 MEQ/L (3.5-5.1); SODIUM LEVEL 142 MEQ/L (136-145)
[2018-06-12 08:00] VITALS: BP 120/80
--- NOTE | 2018-06-12 08:28 | NUR ---
HD#4 S: Darlene is feeling improved. Pelvic pain / flank pain has significantly subsided. Decision was made to continue IV abx yesterday. She has remained afebrile overnight. O: VSS/normotensive, afebrile. Notable for bradycardia (see medicine note) Gen well appearing abd: tenderness along suprapubic renal u/s showing : several stone with moderate right hydronephrosis CTa/p on 06/10: no obstructing stone or significant hydronephrosis. WBC 6.3 A/P: 22yo being treated for pyelonephrosis vs endometritis - improved/stable -Continue pain control -Discontinue IV abx -D/C once 24 hours -defer cardiology eval to medicine team (outpat vs inpat) Andra Harrison DO
--- NOTE | 2018-06-12 08:43 | ECGEPIP ---
Stationary ECG Study [facility] Test Date: 2018-06-12 Pat Name: CLAUDETTE REYNA Department: Room: [place] [address] Gender: F Bus Girl: : 1995 Requested By: YOUNG BARRY Order Number: [id number] Reading MD: Yeimy Pressley Measurements Intervals [place] Rate: 46 P: -7 IN: 149 QRS: 83 QRSD: 106 T: 62 QT: 454 QTc: 401 Interpretive Statements SINUS BRADYCARDIA OTHERWISE NORMAL ECG NO PRIOR Electronically Signed On 06-12-2018 8:43:21 EST by Yeimy Pressley
[2018-06-12] MEDS: DOCUSATE SODIUM 100 MG CAP PO SCH (09:25)
[2018-06-12] MEDS: PRENATAL VITAMINS CHEWABLE TABLET PO SCH (09:25)
[2018-06-12] MEDS: ESCITALOPRAM OXALATE 10 MG TAB (LEXAPRO) PO SCH (09:26)
--- NOTE | 2018-06-12 12:43 | IPNPDOC ---
Text Note Date of Service The patient was seen on 06/12/18. NOTE Subjective: Patient is a 22-year-old female , with PMHx of Thelma-Danlos Syndrome (Type 3), Asthma, Hypothyroidism, Medullary sponge disease, Anxiety / Depression who presented to the ER with complaints of fever, chills and rigors. Patient had given 6 days prior to arrival . In the emergency room, patient was suspected to have a urinary tract infection and was admitted to [facility] for post- fever. Hospital service was called for consultation for suspected sepsis. Patient was seen and examined at the bedside. Currently patient has no new complaints. Notes that her suprapubic tenderness is improving. Still notes bilateral kidney pain. Denies chest pain, shortness of breath, palpitations. Denies nausea, vomiting, constipation, diarrhea, or burning or discomfort with urination. Overnight, patient was found to have a low heart rate. She remains asymptomatic; denied any lightheadedness, dizziness, palpitations, shortness of breath or chest pain. Objective: Vitals (See below) General: Lying in bed, no acute distress, comfortable, AAOx3 HEENT: NC, AT CVS: RRR, +S1S2 Lungs: Fair air entry b/l, there does not appear to be any auscultated evidence of rhonchi, rales or wheezing Abdomen: Soft, ND, no suprapubic tenderness is appreciated. Bilateral CVA tenderness. Still noted Extremities: Again lower family's or without any evidence of edema, - Calf tenderness Assessment and plan: s/p Sepsis - likely 2/2 cystitis and pyelonephritis - Patient has a history of several urinary tract infections during her for which she is using 3 different times of antibiotics - Presented to the ER with complaints of fevers, chills and rigors, - In the emergency room, patient was found to be hypotensive; has responded to IV fluid hydration - Physical with persistence of bilateral CVA tenderness. There is resolution of her suprapubic tenderness - No significant leukocytosis; s/p Lactic acidosis - Blood cultures 2/3: Negative at 48 hours; Urine culture 2/3: No growth - US renal 2/4: 1. Calcified stones right and left kidney which are nonobstructive. 2. There is moderate hydronephrosis of the right collecting system and dilatation of the right ureter. Considerations would include reflux versus partial obstruction. Recommend correlation with CT scan with contrast for further evaluation. - Pelvic US 06/10: 1. Relatively normal appearance to the uterus. Thi ckened endometrium cannot exclude retained products of conception. 2. Normal bilateral ovaries without torsion. - CT abdomen / pelvis 06/10: uterine enlargement. Mild right-sided hydronephrosis. No ureteral calculus seen. There are bilateral intrarenal nonobstructive kidney stones. Post appendectomy. Otherwise negative. - s/p Imipenem (Completed 3 day course); s/p IV fluid hydration Hydronephrosis with nephrolithiasis - No renal dysfunction noted on lab work - Imaging consistent with mild right-sided hydronephrosis - Continues to make urine without difficulty Asymptomatic bradycardia - Overnight while patient was asleep patient was found to be bradycardic in the 40s - She denied any lightheadedness, dizziness, chest pain or palpitations - EKG 06/12: Sinus bradycardia without any other abnormalities - Currently is not on any calcium channel blockers or beta blockers - Echocardiogram was ordered by nighttime provider; will follow-up results - Patient notes that she has a history of mitral valve prolapse and was seen by cardiology (unable to recall name) during her - She is noted that on-EKG she has not received any further imaging; she did receive an echocardiogram approximately 4 years ago but is unable to recall results - At this point patient has remained asymptomatic, EKG reveals only sinus bradycardia, will await results of echocardiogram s/p Tachycardia - likely 2/2 sepsis / hypovolemia - s/p IV fluid hydration Thelma-Danlos Syndrome (Type 3) Asthma - No evidence of exacerbation - c/w inhaled therapy as ordered Hypothyroidism - c/w Levothyroxine Medullary sponge disease Anxiety / Depression - c/w Escitalopram DVT prophylaxis - c/w compression stockings Disposition: - Awaiting ECHO VS,Angle, I+O VS, Angle, I+O Laboratory Tests 06/12/18 05:29 Red Blood Count 3.29 L, Mean Corpuscular Volume 84.2, Mean Corpuscular Hemoglobin 26.1 L, Mean Corpuscular Hemoglobin Concent 31.0 L, Red Cell Distribution Width 13.2, Neutrophils (%) (Auto) 54.7, Lymphocytes (%) (Auto) 32.5, Monocytes (%) (Auto) 9.6 H, Eosinophils (%) (Auto) 1.0, Basophils (%) (Auto) 0.3, Neutrophils # (Auto) 3.4, Lymphocytes # (Auto) 2.0, Monocytes # (Auto) 0.6, Eosinophils # (Auto) 0.1, Basophils # (Auto) 0.0, Calcium Level 8.2 L Vital Signs Date Time Temp Pulse Resp B/P (MAP) Pulse Ox O2 Delivery O2 Flow Rate FiO2 06/12/18 08:00 98.6 67 20 120/80 (93) 97 06/09/18 12:04 Room Air I&O- Last 24 Hours up to 6 AM 06/12/18 06:00 Intake Total 1600 ml Output Total 1340 ml Balance 260 ml LAKHWINDER HAMILTON MD Jun 12, 2018 12:43
--- NOTE | 2018-06-12 19:46 | ECHO ---
DATE OF PROCEDURE: 06/12/2018 REFERRING PROVIDER: Dr. Alida Gore. PRIMARY FRAUD EXAMINER: Dr. Pressley. PATIENT LOCATION: Room 3215 REASON FOR THE CARDIOGRAM: Abnormal EKG. 2D MEASUREMENTS: IVS: 0.8 cm LV: 4.8 cm LVPW: 0.8 cm LA: 3.4 cm Aorta: 2.5 cm IVC: 1.14 cm DOPPLER MEASUREMENTS: Peak velocity across the aortic valve: 1.4 m/s Peak velocity across the LVOT: 1.0 m/s Mitral E: 0.9, Mitral A: 0.4, with a ratio of 2.0 Maximum tricuspid valve velocity: 2.0 m/s 2D COMMENTS: 1. Normal left ventricular size, wall thickness and normal global left ventricular systolic function. The estimated left ventricular systolic ejection fraction is 60-65%. 2. Normal left atrium. Normal right atrium and left ventricle. 3. The atrial septum appeared to be normal without evidence of defect or shunt. 4. Normal aortic root. 5. No pericardial effusion seen. 6. The aortic valve, mitral valve, tricuspid valve, and pulmonic valve appeared to be normal. The proximal pulmonary artery branches appeared to be normal in limited views. 7. The inferior vena cava was normal in size, central venous pressure is most likely normal. DOPPLER: It detects trace mitral regurgitation, trace tricuspid regurgitation, and trace pulmonic regurgitation and possible trace aortic regurgitation noted in limited views. The calculated pulmonary artery systolic pressure appeared to be normal. Assessment of the left ventricular diastolic function was normal. IMPRESSION: 1. Normal global left ventricular systolic and diastolic function. 2. Trace mitral regurgitation. 3. Trace tricuspid regurgitation with a normal calculated pulmonary artery systolic pressure. 4. Possible trace aortic regurgitation noted in limited views .
[2018-06-12 20:00] VITALS: BP 123/66
[2018-06-13] VITALS: BP 137/77
[2018-06-13] MEDS: IBUPROFEN 800 MG TAB PO SCH ×2 (00:03→05:40)
[2018-06-13] MEDS: DOCUSATE SODIUM 100 MG CAP PO SCH ×2 (00:04→09:37)
[2018-06-13 04:00] VITALS: BP 109/76
[2018-06-13] MEDS: LEVOTHYROXINE 112MCG TABLET (0.112MG) PO SCH (05:40)
[2018-06-13] MEDS: SLF 3 ML SYR IV SCH (05:42)
[2018-06-13 06:01] LABS: BASO # 0.1 10^3/uL (0.0-0.2); BASO % 0.6 % (0.0-1.0); EOS # 0.1 10^3/uL (0.0-0.50); EOS % 0.9 % (0.0-3.0); HEMATOCRIT 31.3 % (36.0-47.0); HEMOGLOBIN 9.8 g/dl (12.0-15.5); LYMPH # 2.6 10^3/uL (1.5-6.5); LYMPH % 32.2 % (24.0-44.0); MEAN CORPUSCULAR HEMOGLOBIN 26.3 pg (27.0-33.0); MEAN CORPUSCULAR HGB CONC 31.3 g/dl (32.0-36.5); MEAN CORPUSCULAR VOLUME 83.9 fl (80.0-96.0); MONO # 0.5 10^3/uL (0.0-0.8); MONO % 5.5 % (0.0-5.0); NEUTROPHILS # 4.7 10^3/uL (1.8-7.7); NEUTROPHILS % 58.3 % (36.0-66.0); PLATELET COUNT, AUTOMATED 197 10^3/uL (150-450); RED BLOOD COUNT 3.73 10^6/uL (4.00-5.40); WHITE BLOOD COUNT 8.1 10^3/uL (4.0-10.0)
[2018-06-13 06:29] LABS: BLOOD UREA NITROGEN 13 MG/DL (7-18); CARBON DIOXIDE LEVEL 24 MEQ/L (21-32); CHLORIDE LEVEL 108 MEQ/L (98-107); CREATININE FOR GFR 0.52 MG/DL (0.55-1.30); GLOMERULAR FILTRATION RATE > 60.0 (>60); GLUCOSE, FASTING 84 MG/DL (70-100); MAGNESIUM LEVEL 2.1 MG/DL (1.8-2.4); POTASSIUM SERUM 3.9 MEQ/L (3.5-5.1); SODIUM LEVEL 140 MEQ/L (136-145)
[2018-06-13 08:00] VITALS: BP 114/73
[2018-06-13] MEDS: ESCITALOPRAM OXALATE 10 MG TAB (LEXAPRO) PO SCH (09:37)
[2018-06-13] MEDS: PRENATAL VITAMINS CHEWABLE TABLET PO SCH (09:37)
--- NOTE | 2018-06-13 16:27 | DSES ---
DATE OF ADMISSION: 06/09/2018 DATE OF DISCHARGE: 06/13/2018 22-year-old, 2, para 1 female, day #6 after a vaginal delivery presents with fevers and upper back pain. She took her temperature at home which was 103 degrees Fahrenheit. She took some ibuprofen and Tylenol and eventually went to the emergency room. She denies significant abdominal pain. Her medical history is significant for hypothyroidism, Thelma-Danlos syndrome, and sponge kidney. HOSPITAL COURSE: On admission, the patient was noted to have some right costovertebral (CVA) tenderness and urine appeared suspicious for infection. She did have a fever on admission but it was no higher than 99.8 degrees Fahrenheit. Her pulse was approximately 100. She was diagnosed with a suspicion of possible pyelonephritis although diagnosis was not 100% certain. There was also concern for endometritis. With the high fevers reported at home it was decided to consult the hospitalist service for possible sepsis. She was treated with imipenem for diagnosis of possible pyelonephritis. Ultrasound did show moderate hydronephrosis of the kidney with kidney stones present. She had no further fevers during hospitalization. Pain gradually improved. By hospital day #5 she is pain free and desired discharge. ADMISSION DIAGNOSES: fevers, possible pyelonephritis. DISCHARGE DIAGNOSES: fevers, possible pyelonephritis. DISPOSITION: Patient will not require antibiotics at home. She will be discharged with instructions. She will followup in the office within 1-2 weeks.
== END 2018-06-13 11:01 | disposition home or self-care (01) | DRG 561 ==
LOC: M ED 12:03 → M ED INP 16:29 → M PCU 20:35
PROVIDERS: ADMIT Obstetrics & Gynecology; ATTEND Specialist
DX: O98.83 Other maternal infectious and parasitic diseases complicating the puerperium (principal); A41.9 Sepsis, unspecified organism; R00.1 Bradycardia, unspecified; N13.2 Hydronephrosis with renal and ureteral calculous obstruction; O99.89 Other specified diseases and conditions complicating pregnancy, childbirth and the puerperium

== ENCOUNTER → 2018-09-12 | Outpatient (REF) | payer OTHER ==
[~2018-09-12] MED LIST changes: -METR-201 PO; +METR-265 PO; -NORC1TAB4 PO; +NORC1TAB7 PO; -PEPC1TAB2 PO; +PEPC40TA12 PO; -VICO5TAB16 PO; +VICO5TAB17 PO
== END ==
LOC: M LAB REF 17:16
PROVIDERS: ATTEND Obstetrics & Gynecology
DX: Z12.4 Encounter for screening for malignant neoplasm of cervix (principal)

== ENCOUNTER → 2019-12-09 | Outpatient (REF) | payer OTHER ==
[2020-01-23 10:50] LABS: FREE T4 0.88 NG/DL (0.76-1.46); THYROID STIMULATING HORMONE 1.72 uIU/ML (0.358-3.740)
== END ==
LOC: M SFHCWAGY 09:44
PROVIDERS: ATTEND Specialist
DX: Z12.4 Encounter for screening for malignant neoplasm of cervix (principal)

== ENCOUNTER → 2021-04-06 | Outpatient (CLI) | payer BC, OTHER ==
[~2021-04-06] MED LIST changes: -GRAN1TA PO; +GRAN1TAB PO
== END ==
LOC: M RAD 15:04
PROVIDERS: ATTEND Obstetrics & Gynecology
DX: N83.202 Unspecified ovarian cyst, left side (principal)

== ENCOUNTER → 2021-07-18 | Outpatient (CLI) | payer BC, OTHER | LOC: M LAB 09:49 | PROVIDERS: ATTEND Advanced Practice Midwife | DX: O26.30 Retained intrauterine contraceptive device in pregnancy, unspecified trimester (principal) ==

== ENCOUNTER → 2021-08-02 | Outpatient (CLI) | payer BC, OTHER | LOC: M WHC 12:54 | PROVIDERS: ATTEND Advanced Practice Midwife | DX: O26.30 Retained intrauterine contraceptive device in pregnancy, unspecified trimester (principal) ==

== ENCOUNTER → 2021-09-02 | Outpatient (CLI) | payer MEDICAID, SELFPAY ==
[~2021-09-02] MED LIST changes: +ONDA4TAB6; +ONDA8TAB8 PO; +PROM25SU3
== END ==
LOC: M LABSMTC 10:40
PROVIDERS: ATTEND Anesthesiology
DX: Z01.812 Encounter for preprocedural laboratory examination (principal); Z20.822 Contact with and (suspected) exposure to COVID-19

== ENCOUNTER 2021-09-06 08:06 | Day surgery (SDC) | payer MEDICAID ==
[~2021-09-06] VITALS: Ht 152.4 cm; Wt 74.8 kg
[2021-09-06 08:47] LABS: HEMATOCRIT 40.8 % (36.0-47.0); HEMOGLOBIN 13.4 g/dl (12.0-15.5); MEAN CORPUSCULAR HEMOGLOBIN 28.3 pg (27.0-33.0); MEAN CORPUSCULAR HGB CONC 32.8 g/dl (32.0-36.5); MEAN CORPUSCULAR VOLUME 86.3 fl (80.0-96.0); PLATELET COUNT, AUTOMATED 214 10^3/uL (150-450); RED BLOOD COUNT 4.73 10^6/uL (4.00-5.40); WHITE BLOOD COUNT 7.5 10^3/uL (4.0-10.0)
[2021-09-06] MEDS ORDERED: LIDOCAINE 2% 100MG/5ML SDV (FOR ANES.) As Ordered ONE (09:15)
[2021-09-06] MEDS ORDERED: propofoL 200 MG/20 ML VIAL As Ordered ONE (09:15)
[2021-09-06] MEDS ORDERED: MIDAZOLAM INJ 2MG/2ML VIAL (J2250 PER 1MG) As Ordered ONE (09:15)
[2021-09-06] MEDS ORDERED: fentaNYL 100 MCG/2 ML INJECTION As Ordered ONE (09:15)
[2021-09-06] MEDS ORDERED: SCOPOLAMINE 1MG TRANSDERMAL PATCH TOP ONE (09:30)
[2021-09-06] MEDS ORDERED: LR 1,000 ML IV ONE (10:10)
[2021-09-06] MEDS ORDERED: dexameTHASONE 4 MG/ML 1ML VIAL (J1100 PER 1MG) As Ordered ONE (10:15)
[2021-09-06] MEDS ORDERED: ONDANSETRON 4MG/2ML VIAL As Ordered ONE (10:16)
[2021-09-06] MEDS ORDERED: KETOROLAC 60MG 2ML VIAL As Ordered ONE (10:25)
[2021-09-06] MEDS ORDERED: PROMETHAZINE 25MG/ML 1ML VIAL IV PRN (11:00)
[2021-09-06] MEDS ORDERED: ONDANSETRON 4MG/2ML VIAL IV PRN (11:00)
[2021-09-06] MEDS ORDERED: MEPERIDINE INJ 25 MG/ML VIAL (J2175) IV PRN (11:00)
[2021-09-06] MEDS ORDERED: HYDROMORPHONE HCL 0.5 MG/ 0.5 ML SYRINGE (J1170 PER 1) IV PRN ×2 (11:00→11:05)
[2021-09-06] MEDS ORDERED: oxyCODONE 5MG TAB PO PRN (11:00)
[2021-09-06] MEDS ORDERED: LR 1,000 ML IV SCH (11:05)
[2021-09-06] MEDS ORDERED: DOXYCYCLINE HYCLATE 100MG TABLET PO ONE (11:05)
[2021-09-06] MEDS ORDERED: LEVALBUTEROL 1.25 MG/0.5 ML CONCENTRATE NEB INH ONE (11:05)
[2021-09-06] MEDS ORDERED: ACETAMINOPHEN 500 MG TAB PO ONE (11:05)
[2021-09-06 12:22] VITALS: BP 115/65
== END 2021-09-06 12:29 | disposition home or self-care (01) ==
LOC: M SDC 08:06
PROVIDERS: ATTEND Specialist
DX: O02.1 Missed abortion (principal); Q79.60 Ehlers-Danlos syndrome, unspecified; Z88.0 Allergy status to penicillin; Z88.8 Allergy status to other drugs, medicaments and biological substances; Z91.040 Latex allergy status; Z91.030 Bee allergy status
CPT/HCPCS: 36415; 59820; 85027; 88305; J1100; J1885; J2250; J2405; J3010

== ENCOUNTER → 2021-09-20 | Outpatient (CLI) | payer MEDICAID ==
[2021-09-20 16:48] LABS: FREE T4 0.98 NG/DL (0.76-1.46); THYROID STIMULATING HORMONE 1.12 uIU/ML (0.358-3.740)
== END ==
LOC: M PLALAB 13:28
PROVIDERS: ATTEND Specialist
DX: N92.6 Irregular menstruation, unspecified (principal)

== ENCOUNTER → 2021-10-05 | Outpatient (CLI) | payer MEDICAID | LOC: M PLALAB 13:03 | PROVIDERS: ATTEND Specialist | DX: N92.6 Irregular menstruation, unspecified (principal) ==

== ENCOUNTER → 2021-11-11 | Outpatient (CLI) | payer OTHER | LOC: M LAB 16:24 | PROVIDERS: ATTEND Obstetrics & Gynecology | DX: Z32.01 Encounter for pregnancy test, result positive (principal) ==

== ENCOUNTER → 2021-11-13 | Outpatient (CLI) | payer OTHER | LOC: M LAB 11:34 | PROVIDERS: ATTEND Obstetrics & Gynecology | DX: Z32.01 Encounter for pregnancy test, result positive (principal) ==

== ENCOUNTER 2021-11-18 19:56 | Emergency (ER) | payer OTHER ==
[~2021-11-18] VITALS: Ht 165.1 cm; Wt 86.6 kg
[2021-11-18 22:30] LABS: BASO % 0.5 % (0.0-1.0); EOS # 0.2 10^3/uL (0.0-0.5); HEMATOCRIT 40.3 % (36.0-47.0); HEMOGLOBIN 12.8 g/dl (12.0-15.5); LYMPH # 2.5 10^3/uL (1.5-5.0); LYMPH % 30.8 % (24.0-44.0); MEAN CORPUSCULAR HEMOGLOBIN 27.6 pg (27.0-33.0); MEAN CORPUSCULAR HGB CONC 31.8 g/dl (32.0-36.5); MONO # 0.6 10^3/uL (0.0-0.8); MONO % 7.1 % (2.0-8.0); NEUTROPHILS # 4.8 10^3/uL (1.5-8.5); NEUTROPHILS % 59.4 % (36.0-66.0); PLATELET COUNT, AUTOMATED 265 10^3/uL (150-450); RED BLOOD COUNT 4.63 10^6/uL (4.00-5.40); WHITE BLOOD COUNT 8.1 10^3/uL (4.0-10.0)
[2021-11-18 22:54] LABS: BLOOD UREA NITROGEN 14 MG/DL (7-18); CALCIUM LEVEL 9.2 MG/DL (8.5-10.1); CARBON DIOXIDE LEVEL 27 MEQ/L (21-32); CHLORIDE LEVEL 107 MEQ/L (98-107); GLOMERULAR FILTRATION RATE > 60.0 (>60); GLUCOSE, FASTING 86 MG/DL (70-100); HCG, SERUM QUANTITATIVE 52 MIU/ML; POTASSIUM SERUM 4.4 MEQ/L (3.5-5.1); SODIUM LEVEL 141 MEQ/L (136-145)
[2021-11-19] MEDS ORDERED: IBUPROFEN 600MG TAB PO ONE (02:55)
[2021-11-19 03:06] VITALS: BP 113/73
== END 2021-11-19 03:24 | disposition home or self-care (01) ==
LOC: M ED 19:56
DX: N93.9 Abnormal uterine and vaginal bleeding, unspecified (principal); R42 Dizziness and giddiness; Z87.59 Personal history of other complications of pregnancy, childbirth and the puerperium; N83.291 Other ovarian cyst, right side; E03.9 Hypothyroidism, unspecified; F41.9 Anxiety disorder, unspecified; F32.A Depression, unspecified; Z88.8 Allergy status to other drugs, medicaments and biological substances; Z91.030 Bee allergy status; Z91.040 Latex allergy status; Z79.899 Other long term (current) drug therapy; Z79.890 Hormone replacement therapy

== ENCOUNTER → 2021-11-22 | Outpatient (CLI) | payer OTHER | LOC: M PLALAB 12:47 | PROVIDERS: ATTEND Obstetrics & Gynecology | DX: O03.9 Complete or unspecified spontaneous abortion without complication (principal) ==

== ENCOUNTER → 2021-11-30 | Outpatient (CLI) | payer OTHER | LOC: M LAB 11:11 | PROVIDERS: ATTEND Obstetrics & Gynecology | DX: O03.9 Complete or unspecified spontaneous abortion without complication (principal) ==

== ENCOUNTER → 2021-12-14 | Outpatient (CLI) | payer OTHER | LOC: M WHC 10:36 | PROVIDERS: ATTEND Advanced Practice Midwife | DX: O02.1 Missed abortion (principal) ==

== ENCOUNTER → 2022-02-13 | Outpatient (CLI) | payer MEDICAID, OTHER | LOC: M LABSMTC 09:35 | PROVIDERS: ATTEND Anesthesiology | DX: Z01.818 Encounter for other preprocedural examination (principal); Z11.52 Encounter for screening for COVID-19 ==

== ENCOUNTER 2022-02-16 08:09 | Day surgery (SDC) | payer MEDICAID, OTHER ==
[~2022-02-16] VITALS: Ht 152.4 cm; Wt 81.6 kg
[~2022-02-16 08:09] MED LIST changes: +KETOROLAC 60MG 2ML VIAL As Ordered ONE; +LIDOCAINE 2% 100MG/5ML SDV (FOR ANES.) As Ordered ONE; +MIDAZOLAM INJ 2MG/2ML VIAL (J2250 PER 1MG) As Ordered ONE; +ONDANSETRON 4MG 2ML VIAL As Ordered ONE; +dexameTHASONE 4 MG/ML 1ML VIAL (J1100 PER 1MG) As Ordered ONE; +fentaNYL 100 MCG/2 ML INJECTION As Ordered ONE; +propofoL 200 MG/20 ML VIAL As Ordered ONE
[2022-02-16] MEDS ORDERED: LR 1,000 ML IV SCH ×2 (08:50→10:45)
[2022-02-16 09:13] LABS: HEMATOCRIT 42.1 % (36.0-47.0); HEMOGLOBIN 13.8 g/dl (12.0-15.5); MEAN CORPUSCULAR HEMOGLOBIN 27.4 pg (27.0-33.0); MEAN CORPUSCULAR HGB CONC 32.8 g/dl (32.0-36.5); MEAN CORPUSCULAR VOLUME 83.7 fl (80.0-96.0); PLATELET COUNT, AUTOMATED 278 10^3/uL (150-450); RED BLOOD COUNT 5.03 10^6/uL (4.00-5.40); WHITE BLOOD COUNT 8.4 10^3/uL (4.0-10.0)
[2022-02-16 09:27] LABS: HCG, SERUM QUALITATIVE NEGATIVE (NEGATIVE)
[2022-02-16] MEDS ORDERED: KETOROLAC 60MG 2ML VIAL As Ordered ONE (10:00)
[2022-02-16] MEDS ORDERED: fentaNYL 100 MCG/2 ML INJECTION IV PRN (10:45)
[2022-02-16] MEDS ORDERED: oxyCODONE 5MG TAB PO PRN (10:45)
[2022-02-16] MEDS ORDERED: ONDANSETRON 4MG 2ML VIAL IV PRN (10:45)
[2022-02-16] MEDS: HYDROMORPHONE HCL 0.5 MG/ 0.5 ML SYRINGE (J1170 PER 1) IV PRN ×2 (11:28→11:33)
[2022-02-16] MEDS ORDERED: MEPERIDINE 50 MG/ML 1ML VIAL (J2175) As Ordered ONE (12:00)
[2022-02-16 12:28] VITALS: BP 127/79
== END 2022-02-16 12:30 | disposition home or self-care (01) ==
LOC: M SDC 08:09
PROVIDERS: ATTEND Obstetrics & Gynecology
DX: N84.0 Polyp of corpus uteri (principal); R93.89 Abnormal findings on diagnostic imaging of other specified body structures; Z88.1 Allergy status to other antibiotic agents; Z88.8 Allergy status to other drugs, medicaments and biological substances; Z91.030 Bee allergy status; Z91.040 Latex allergy status
CPT/HCPCS: 36415; 58558; 84703; 85027; 86850; 86900; 86901; 88305; J1100; J1170; J1885; J2175; J2250; J2405; J3010

== ENCOUNTER → 2022-05-19 | Outpatient (CLI) | payer OTHER ==
[~2022-05-19] MED LIST changes: -KETOROLAC 60MG 2ML VIAL As Ordered ONE; -LIDOCAINE 2% 100MG/5ML SDV (FOR ANES.) As Ordered ONE; -MIDAZOLAM INJ 2MG/2ML VIAL (J2250 PER 1MG) As Ordered ONE; -ONDANSETRON 4MG 2ML VIAL As Ordered ONE; -dexameTHASONE 4 MG/ML 1ML VIAL (J1100 PER 1MG) As Ordered ONE; -fentaNYL 100 MCG/2 ML INJECTION As Ordered ONE; -propofoL 200 MG/20 ML VIAL As Ordered ONE
[2022-05-19 14:09] LABS: HEMATOCRIT 41.9 % (36.0-47.0); HEMOGLOBIN 13.4 g/dl (12.0-15.5); MEAN CORPUSCULAR HEMOGLOBIN 27.7 pg (27.0-33.0); MEAN CORPUSCULAR VOLUME 86.7 fl (80.0-96.0); PLATELET COUNT, AUTOMATED 258 10^3/uL (150-450); RED BLOOD COUNT 4.83 10^6/uL (4.00-5.40); WHITE BLOOD COUNT 9.7 10^3/uL (4.0-10.0)
[2022-05-19 14:40] LABS: THYROID STIMULATING HORMONE 1.292 uIU/ML (0.55-4.78)
[2022-05-19 14:42] LABS: FREE T4 0.96 NG/DL (0.89-1.76)
[2022-05-19 15:05] LABS: HIV 1&2 SCREEN CENTAUR NEGATIVE (NEGATIVE)
[2022-05-19 15:12] LABS: HEPATITIS C VIRUS ABY INDEX 0.1 INDEX (<0.8)
[2022-05-19 15:28] LABS: GC DNA AMPLIFICATION NEGATIVE (NEGATIVE)
== END ==
LOC: M PLALAB 09:41
PROVIDERS: ATTEND Specialist
DX: Z34.81 Encounter for supervision of other normal pregnancy, first trimester (principal)

== ENCOUNTER → 2022-06-21 | Outpatient (REF) | payer OTHER ==
[2022-06-21 13:59] LABS: TOTAL PROTEIN,RANDOM URINE 19.4 MG/DL (0.0-14.0)
[2022-06-21 14:02] LABS: CREATININE,RANDOM URINE 158.8 MG/DL
== END ==
LOC: M SFHCWAGY 12:48
PROVIDERS: ATTEND Obstetrics & Gynecology
DX: M32.9 Systemic lupus erythematosus, unspecified (principal)

== ENCOUNTER → 2022-07-19 | Outpatient (REF) | payer OTHER | LOC: M SFHCWAGY 12:54 | PROVIDERS: ATTEND Specialist | DX: Z34.82 Encounter for supervision of other normal pregnancy, second trimester (principal) ==

== ENCOUNTER → 2022-08-14 | Outpatient (CLI) | payer OTHER | LOC: M WHC 10:22 | PROVIDERS: ATTEND Specialist | DX: Z34.92 Encounter for supervision of normal pregnancy, unspecified, second trimester (principal); Z3A.19 19 weeks gestation of pregnancy ==

== ENCOUNTER → 2022-09-11 | Outpatient (CLI) | payer OTHER ==
[2022-09-11 15:50] LABS: FREE T4 0.82 NG/DL (0.89-1.76); THYROID STIMULATING HORMONE 1.635 uIU/ML (0.55-4.78)
== END ==
LOC: M PLALAB 13:56
PROVIDERS: ATTEND Specialist
DX: Z34.82 Encounter for supervision of other normal pregnancy, second trimester (principal)

== ENCOUNTER 2022-09-19 10:03 | Outpatient (CLI) | payer OTHER ==
[~2022-09-19] VITALS: Ht 154.9 cm; Wt 89.2 kg
[2022-09-19 10:18] VITALS: BP 113/74
[2022-09-19] MEDS ORDERED: INSUHUMDS SC (10:44)
[2022-09-19] MEDS ORDERED: ASPI81CH33 PO (10:44)
[2022-09-19] MEDS ORDERED: METF500T13 PO (10:44)
[2022-09-19] MEDS ORDERED: HOME MED LIST COMPLETE! XX SCH (10:45)
== END 2022-09-19 10:57 | disposition home or self-care (01) ==
LOC: M LDO 10:03
PROVIDERS: ATTEND Specialist
DX: O26.852 Spotting complicating pregnancy, second trimester (principal); Z3A.24 24 weeks gestation of pregnancy
CPT/HCPCS: 59025; G0463

== ENCOUNTER → 2022-09-22 | Outpatient (CLI) | payer OTHER ==
[~2022-09-22] MED LIST changes: +ASPI81CH33 PO; +INSUHUMDS SC; +METF500T13 PO
== END ==
LOC: M WHC 10:37
PROVIDERS: ATTEND Advanced Practice Midwife
DX: Z34.82 Encounter for supervision of other normal pregnancy, second trimester (principal)

== ENCOUNTER 2022-10-03 12:30 | Outpatient (CLI) | payer OTHER ==
[~2022-10-03] VITALS: Ht 157.5 cm; Wt 88.0 kg
[2022-10-03] MEDS ORDERED: INSUN SC (12:56)
[2022-10-03] MEDS ORDERED: PLAQ200T4 PO (12:58)
[2022-10-03] MEDS ORDERED: ACET-897 PO (12:58)
[2022-10-03] MEDS ORDERED: TUMS500C PO (12:58)
[2022-10-03 13:06] VITALS: BP 110/66
[2022-10-03] MEDS ORDERED: HOME MED LIST COMPLETE! XX SCH (13:10)
[2022-10-03 15:36] LABS: APPEARANCE, URINE CLOUDY (CLEAR); BACTERIA, URINE AUTO NEGATIVE (NEGATIVE); BILIRUBIN, URINE AUTO NEGATIVE (NEGATIVE); BLOOD, URINE BLOOD NEGATIVE (NEGATIVE); COLOR, URINE YELLOW (YELLOW); GLUCOSE, URINE (UA) AUTO NEGATIVE (NEGATIVE); KETONE, URINE AUTO 1+ mg/dL (NEGATIVE); LEUKOCYTE ESTERASE, URINE AUTO 1+ (NEGATIVE); MUCUS, URINE SMALL (NEGATIVE); NITRITE, URINE AUTO NEGATIVE (NEGATIVE); PROTEIN, URINE AUTO NEGATIVE (NEGATIVE); RBC, URINE AUTO 0 /HPF (0-3); SPECIFIC GRAVITY URINE AUTO 1.024 (1.002-1.035); SQUAMOUS EPITHELIAL CELL UR AU 20 /HPF (0-6); UROBILINOGEN, URINE AUTO 0.2 mg/dL (0.0-2.0); WBC, URINE AUTO 3 /HPF (0-3)
[2022-10-03 16:53] LABS: GC DNA AMPLIFICATION NEGATIVE (NEGATIVE)
[2022-10-03 17:17] VITALS: BP 108/63
== END 2022-10-03 17:20 | disposition home or self-care (01) ==
LOC: M LDO 12:30
PROVIDERS: ATTEND Obstetrics & Gynecology
DX: O26.852 Spotting complicating pregnancy, second trimester (principal); O26.892 Other specified pregnancy related conditions, second trimester; R25.2 Cramp and spasm; Z3A.26 26 weeks gestation of pregnancy
CPT/HCPCS: 59025; 81001; 87086; 87661; 87810; 87850; G0463

== ENCOUNTER → 2022-10-06 | Outpatient (CLI) | payer OTHER ==
[~2022-10-06] MED LIST changes: +ACET-897 PO; +INSUN SC; +NOVO1INJ4 SC; +PLAQ200T4 PO; +TUMS500C PO
[2022-10-06 14:08] LABS: APPEARANCE, URINE HAZY (CLEAR); BACTERIA, URINE AUTO NEGATIVE (NEGATIVE); BILIRUBIN, URINE AUTO NEGATIVE (NEGATIVE); BLOOD, URINE BLOOD NEGATIVE (NEGATIVE); COLOR, URINE YELLOW (YELLOW); GLUCOSE, URINE (UA) AUTO NEGATIVE (NEGATIVE); KETONE, URINE AUTO TRACE mg/dL (NEGATIVE); LEUKOCYTE ESTERASE, URINE AUTO 2+ (NEGATIVE); MUCUS, URINE SMALL (NEGATIVE); NITRITE, URINE AUTO NEGATIVE (NEGATIVE); PROTEIN, URINE AUTO NEGATIVE (NEGATIVE); RBC, URINE AUTO 0 /HPF (0-3); SPECIFIC GRAVITY URINE AUTO 1.031 (1.002-1.035); SQUAMOUS EPITHELIAL CELL UR AU 21 /HPF (0-6); UROBILINOGEN, URINE AUTO 0.2 mg/dL (0.0-2.0); WBC, URINE AUTO 9 /HPF (0-3)
[2022-10-06 14:10] LABS: BASO % 0.2 % (0.0-1.0); EOS % 0.5 % (0.0-3.0); HEMATOCRIT 35.6 % (36.0-47.0); HEMOGLOBIN 11.1 g/dl (12.0-15.5); LYMPH # 1.3 10^3/uL (1.5-5.0); MEAN CORPUSCULAR HEMOGLOBIN 26.7 pg (27.0-33.0); MEAN CORPUSCULAR HGB CONC 31.2 g/dl (32.0-36.5); MEAN CORPUSCULAR VOLUME 85.8 fl (80.0-96.0); MONO # 0.5 10^3/uL (0.0-0.8); MONO % 6.2 % (2.0-8.0); NEUTROPHILS # 6.6 10^3/uL (1.5-8.5); NEUTROPHILS % 77.5 % (36.0-66.0); PLATELET COUNT, AUTOMATED 215 10^3/uL (150-450); RED BLOOD COUNT 4.15 10^6/uL (4.00-5.40); WHITE BLOOD COUNT 8.6 10^3/uL (4.0-10.0)
[2022-10-06 14:23] LABS: ERYTHROCYTE SEDIMENTATION RATE 40 mm/hr (0-20)
[2022-10-06 14:41] LABS: ALBUMIN 2.9 G/DL (3.2-5.2); ALKALINE PHOSPHATASE 68 U/L (46-116); ALT/SGPT 11 U/L (7.0-40); AST/SGOT < 8 U/L (<34); BILIRUBIN,TOTAL 0.2 MG/DL (0.3-1.2); BLOOD UREA NITROGEN 9 MG/DL (9-23); CALCIUM LEVEL 8.3 MG/DL (8.5-10.1); CARBON DIOXIDE LEVEL 23 MMOL/L (20-31); CHLORIDE LEVEL 106 MMOL/L (98-107); CREATININE FOR GFR 0.52 MG/DL (0.55-1.30); GLOMERULAR FILTRATION RATE > 60.0 (>60); GLUCOSE, FASTING 92 MG/DL (60-100); SODIUM LEVEL 137 MMOL/L (136-145); TOTAL PROTEIN 5.9 G/DL (5.7-8.2)
== END ==
LOC: M PLALAB 09:56
DX: M35.00 Sjogren syndrome, unspecified (principal)

== ENCOUNTER → 2022-10-06 | Outpatient (CLI) | payer OTHER ==
[2022-10-06 14:33] LABS: HEMOGLOBIN 11.3 g/dl (12.0-15.5); MEAN CORPUSCULAR HEMOGLOBIN 27.4 pg (27.0-33.0); MEAN CORPUSCULAR HGB CONC 32.3 g/dl (32.0-36.5); PLATELET COUNT, AUTOMATED 210 10^3/uL (150-450); RED BLOOD COUNT 4.12 10^6/uL (4.00-5.40); WHITE BLOOD COUNT 8.7 10^3/uL (4.0-10.0)
[2022-10-06 14:44] LABS: THYROID STIMULATING HORMONE 1.521 uIU/ML (0.55-4.78); TOTAL PROTEIN,RANDOM URINE 17.2 MG/DL (0.0-14.0)
[2022-10-06 14:46] LABS: ALBUMIN 2.8 G/DL (3.2-5.2); ALKALINE PHOSPHATASE 73 U/L (46-116); ALT/SGPT 12 U/L (7.0-40); AST/SGOT 11 U/L (<34); BILIRUBIN,TOTAL 0.2 MG/DL (0.3-1.2); BLOOD UREA NITROGEN 9 MG/DL (9-23); CALCIUM LEVEL 8.2 MG/DL (8.5-10.1); CARBON DIOXIDE LEVEL 23 MMOL/L (20-31); CHLORIDE LEVEL 105 MMOL/L (98-107); CREATININE FOR GFR 0.52 MG/DL (0.55-1.30); GLOMERULAR FILTRATION RATE > 60.0 (>60); GLUCOSE, FASTING 92 MG/DL (60-100); POTASSIUM SERUM 4.1 MMOL/L (3.5-5.1); SODIUM LEVEL 138 MMOL/L (136-145); TOTAL PROTEIN 5.8 G/DL (5.7-8.2)
[2022-10-06 14:47] LABS: CREATININE,RANDOM URINE 127.8 MG/DL
[2022-10-06 15:43] LABS: GC DNA AMPLIFICATION NEGATIVE (NEGATIVE)
== END ==
LOC: M PLALAB 09:50
PROVIDERS: ATTEND Obstetrics & Gynecology
DX: Z34.92 Encounter for supervision of normal pregnancy, unspecified, second trimester (principal)

== ENCOUNTER 2022-10-10 19:51 | Outpatient (CLI) | payer OTHER ==
[~2022-10-10] VITALS: Ht 154.9 cm; Wt 88.9 kg
[~2022-10-10 19:51] MED LIST changes: -NOVO1INJ4 SC
[2022-10-10] MEDS ORDERED: NOVO1INJ4 SC (20:27)
[2022-10-10 20:30] VITALS: BP 108/67
[2022-10-10 21:44] LABS: APPEARANCE, URINE CLEAR (CLEAR); BACTERIA, URINE AUTO NEGATIVE (NEGATIVE); BILIRUBIN, URINE AUTO NEGATIVE (NEGATIVE); BLOOD, URINE BLOOD NEGATIVE (NEGATIVE); COLOR, URINE YELLOW (YELLOW); GLUCOSE, URINE (UA) AUTO NEGATIVE (NEGATIVE); KETONE, URINE AUTO 2+ mg/dL (NEGATIVE); LEUKOCYTE ESTERASE, URINE AUTO NEGATIVE (NEGATIVE); MUCUS, URINE SMALL (NEGATIVE); NITRITE, URINE AUTO NEGATIVE (NEGATIVE); PROTEIN, URINE AUTO NEGATIVE (NEGATIVE); RBC, URINE AUTO 0 /HPF (0-3); SPECIFIC GRAVITY URINE AUTO 1.018 (1.002-1.035); SQUAMOUS EPITHELIAL CELL UR AU 1 /HPF (0-6); UROBILINOGEN, URINE AUTO 0.2 mg/dL (0.0-2.0); WBC, URINE AUTO 0 /HPF (0-3)
== END 2022-10-10 22:18 | disposition home or self-care (01) ==
LOC: M LDO 19:51
PROVIDERS: ATTEND Specialist
DX: O26.892 Other specified pregnancy related conditions, second trimester (principal); R10.2 Pelvic and perineal pain; R25.2 Cramp and spasm; O24.112 Pre-existing type 2 diabetes mellitus, in pregnancy, second trimester; Z88.8 Allergy status to other drugs, medicaments and biological substances; Z79.4 Long term (current) use of insulin; Z3A.27 27 weeks gestation of pregnancy
CPT/HCPCS: 59025; 81001; G0463

== ENCOUNTER → 2022-10-26 | Outpatient (CLI) | payer OTHER ==
[~2022-10-26] MED LIST changes: +NOVO1INJ4 SC
== END ==
LOC: M RAD 14:32
PROVIDERS: ATTEND Obstetrics & Gynecology
DX: O99.112 Other diseases of the blood and blood-forming organs and certain disorders involving the immune mechanism complicating pregnancy, second trimester (principal)

== ENCOUNTER 2023-01-04 09:20 | Day surgery (SDC) | payer OTHER ==
[~2023-01-04] VITALS: Ht 154.9 cm; Wt 81.0 kg
[~2023-01-04 09:20] MED LIST changes: +SYNT88TA2 PO
[2023-01-04] MEDS ORDERED: LR 1,000 ML IV SCH ×2 (09:50→12:10)
[2023-01-04 10:03] LABS: HEMATOCRIT 44.2 % (36.0-47.0); HEMOGLOBIN 13.9 g/dl (12.0-15.5); MEAN CORPUSCULAR HEMOGLOBIN 26.1 pg (27.0-33.0); MEAN CORPUSCULAR HGB CONC 31.4 g/dl (32.0-36.5); MEAN CORPUSCULAR VOLUME 83.1 fl (80.0-96.0); PLATELET COUNT, AUTOMATED 209 10^3/uL (150-450); RED BLOOD COUNT 5.32 10^6/uL (4.00-5.40); WHITE BLOOD COUNT 5.2 10^3/uL (4.0-10.0)
[2023-01-04] MEDS ORDERED: propofoL 200 MG/20 ML VIAL As Ordered ONE (11:12)
[2023-01-04] MEDS ORDERED: ROCURONIUM BROMIDE 50MG/5ML VIAL As Ordered ONE (11:12)
[2023-01-04] MEDS ORDERED: LIDOCAINE 2% 100MG/5ML SDV (FOR ANES.) As Ordered ONE (11:12)
[2023-01-04] MEDS ORDERED: fentaNYL 250 MCG/5 ML INJECTION As Ordered ONE (11:12)
[2023-01-04] MEDS ORDERED: MIDAZOLAM INJ 2MG/2ML VIAL As Ordered ONE (11:13)
[2023-01-04] MEDS ORDERED: ACETAMINOPHEN 1000MG 100ML IV BAG As Ordered ONE (11:52)
[2023-01-04] MEDS ORDERED: ONDANSETRON 4MG 2ML VIAL As Ordered ONE (11:52)
[2023-01-04] MEDS ORDERED: SUGAMMADEX SODIUM 500 MG/5 ML VIAL (BRIDION) As Ordered ONE (11:52)
[2023-01-04] MEDS ORDERED: KETOROLAC 60MG 2ML VIAL As Ordered ONE (11:52)
[2023-01-04] MEDS ORDERED: oxyCODONE 5MG TAB PO PRN (12:10)
[2023-01-04] MEDS ORDERED: ONDANSETRON 4MG 2ML VIAL IV PRN (12:10)
[2023-01-04] MEDS ORDERED: HYDROMORPHONE HCL 0.5 MG/ 0.5 ML SYRINGE IV PRN (12:10)
[2023-01-04] MEDS ORDERED: fentaNYL 100 MCG/2 ML INJECTION IV PRN (12:10)
[2023-01-04 14:00] VITALS: BP 128/79; TEMP 97.2; O2SAT 97
== END 2023-01-04 14:12 | disposition home or self-care (01) ==
LOC: M SDC 09:20
PROVIDERS: ATTEND Obstetrics & Gynecology
DX: Z30.2 Encounter for sterilization (principal); T88.59XD Other complications of anesthesia, subsequent encounter; R11.2 Nausea with vomiting, unspecified; Z88.1 Allergy status to other antibiotic agents; Z88.8 Allergy status to other drugs, medicaments and biological substances; Z91.040 Latex allergy status
CPT/HCPCS: 36415; 58661; 81025; 85027; 86850; 86900; 86901; 88302; J0131; J0665; J1100; J1885; J2250; J2405; J3010